=== PATIENT | male | born 1955 | race Caucasian/White ===

== ENCOUNTER 2023-09-02 08:55 | Day surgery (SDC) | payer MEDICARE, SELFPAY ==
[2023-08-27 10:04] VITALS: BMI 31.6
[2023-08-28 09:30] VITALS: BMI 31.6
--- NOTE | 2023-09-02 07:49 | WPDANESEPPF ---
Anes - Initial Pre Proc Eval Procedure: Operation Date: 09/02/23 11:30 Proposed Procedures p Esophagogastroduodenoscopy - Gunner Rod MD Date/Time: 09/02/23 07:49 Surgeon: Gunner Rod MD Pre Op Diagnosis: Dysphagia Patient Data Age: 68 Gender: M Height: 1.78 m Weight: 100 kg Allergies Allergy/AdvReac Type Severity Reaction Status Date / Time No Known Allergies Allergy Verified 09/02/23 10:29 Home Medications Medication Instructions Recorded Confirmed Type alprazolam 0.25 mg tablet 0.25 mg PO DAILY 08/18/22 09/02/23 History bupropion HCl 150 mg 24 hr tablet, 150 mg PO DAILY 08/18/22 09/02/23 History extended release doxazosin 4 mg tablet 4 mg PO DAILY 08/18/22 09/02/23 History tadalafil 5 mg tablet 5 mg PO DAILY 08/18/22 09/02/23 History vilazodone 20 mg tablet 20 mg PO DAILY 08/18/22 09/02/23 History zolpidem 10 mg tablet 10 mg PO HS 08/18/22 09/02/23 History esomeprazole magnesium 40 mg 40 mg PO DAILY 08/28/23 09/02/23 History capsule,delayed release (Nexium) phentermine 37.5 mg tablet 18.75 mg PO DAILY 08/28/23 09/02/23 History Patient hx anesthesia problems: none Family hx anesthesia problems: none Results Review: All pre-operative results and documents have been reviewed as part of the pre-operative evaluation. [facility] Past Medical History Medical History (Updated 09/02/23 @ 12:31 by Ata Lopez DO) Anxiety GERD (gastroesophageal reflux disease) NAILA (obstructive sleep apnea) Family History Family History Father Alcoholism Hypertension Heart disease Cerebrovascular accident Mother Hypertension Heart disease Grandparent Diabetes mellitus Hypertension Cerebrovascular accident Other Thyroid disorder Depression Social History Social History Smoking status: Never smoker Alcohol intake: current Drinks per week: 10 Alcohol use details: beer Substance use: never Substance use type: does not use Lack of Transportation: No Lack of Food: Never True Current Housing: I Have Housing Concerned About Future Housing: No Difficulty Paying Gas/Electric Bills: No Difficulty Paying for Meds: No Currently Unemployed: No Education: Bachelor's Degree Difficulty w/ Childcare or Family Care: No Living arrangements: alone Spiritual care concerns: No Anes - Eval Final PreProcedure Day of Procedure 09/02/23 07:49 Patient weight: obese Heart: regular rate and rhythm Lungs: clear to auscultation Airway: Mallampati scale class II Neurological: alert and oriented Last oral intake: >/= 8 hours ASA classification: III Emergent: no Anesthetic plan: proceed Anesthesia type and monitoring: general GIVS and standard monitoring Results Review: All pre-operative results and documents have been reviewed as part of the pre-operative evaluation. Informed Consent: The patient's anesthetic plan and its attendant risks and benefits were discussed with the patient/family/POA. Questions were solicited and answers provided to the satisfaction of the patient/family/POA.
[2023-09-02 10:32] VITALS: BP 160/75; PULSE 73; RESP 16; TEMP 36.7; O2SAT 96
[2023-09-02] MEDS: LACTATED RINGERS 1,000 ML 150 ML IV CONT (10:43)
--- NOTE | 2023-09-02 10:51 | PM.HPGS ---
History of Present Illness History of Present Illness Consent: Risks, benefits, and alternatives have been discussed and questions answered. Patient agrees to proceed with procedure. Chief complaint: Dysphagia Narrative: Maverick Squires is a 68 year old male presents for EGD. Patient has a long history of acid reflux. He states occasionally food will catch in the mid substernal portion of the chest. This happens predominantly with solid foods. He has taken Nexium 40mg p.o. daily for quite some time. He states initially difficulty swallowing improved on taking this medication but lately has had no significant effect. Family history is noncontributory. Patient's weight has remained stable. No bleeding has been noted. Patient presents today for endoscopic evaluation. Review of Systems Review of Systems: Review of systems noncontributory. [facility] Past Medical History Medical History Anxiety GERD (gastroesophageal reflux disease) Family History Family History Father Alcoholism Hypertension Heart disease Cerebrovascular accident Mother Hypertension Heart disease Grandparent Diabetes mellitus Hypertension Cerebrovascular accident Other Thyroid disorder Depression Social History Social History Smoking status: Never smoker Alcohol intake: current Drinks per week: 10 Alcohol use details: beer Substance use: never Substance use type: does not use Lack of Transportation: No Lack of Food: Never True Current Housing: I Have Housing Concerned About Future Housing: No Difficulty Paying Gas/Electric Bills: No Difficulty Paying for Meds: No Currently Unemployed: No Education: Bachelor's Degree Difficulty w/ Childcare or Family Care: No Living arrangements: alone Spiritual care concerns: No Meds Home Medications and Allergies Home Medications Medication Instructions Recorded Confirmed Type alprazolam 0.25 mg tablet 0.25 mg PO DAILY 08/18/22 09/02/23 History bupropion HCl 150 mg 24 hr tablet, 150 mg PO DAILY 08/18/22 09/02/23 History extended release doxazosin 4 mg tablet 4 mg PO DAILY 08/18/22 09/02/23 History tadalafil 5 mg tablet 5 mg PO DAILY 08/18/22 09/02/23 History vilazodone 20 mg tablet 20 mg PO DAILY 08/18/22 09/02/23 History zolpidem 10 mg tablet 10 mg PO HS 08/18/22 09/02/23 History esomeprazole magnesium 40 mg 40 mg PO DAILY 08/28/23 09/02/23 History capsule,delayed release (Nexium) phentermine 37.5 mg tablet 18.75 mg PO DAILY 08/28/23 09/02/23 History Allergies Allergy/AdvReac Type Severity Reaction Status Date / Time No Known Allergies Allergy Verified 09/02/23 10:29 Vital Signs Vital Signs - 24 hr 09/02/23 10:32 Temperature 98.1 F Pulse Rate 73 Respiratory Rate 16 Blood Pressure 160/75 H Pulse Oximetry 96 Oxygen Delivery Room Air Exam Narrative: Physical exam reveals patient to be alert. Vital signs stable. HEENT exam is unremarkable. Patient is anicteric. Lungs are clear to auscultation and to percussion. Heart is without murmur or extra sounds. Abdomen on is a are present soft nontender with no hepatosplenomegaly. Assessment and Plan Assessment and plan (1) Dysphagia: Code(s): R13.10 - Dysphagia, unspecified Status: Acute Assessment and Plan: complains of food catching in the midsubsternal portion of the chest most consistent with esophageal narrowing related to acid reflux. Plan for EGD to assess more thoroughly. He may need dilatation cm appears appropriate at this time (2) GERD (gastroesophageal reflux disease): Code(s): K21.9 - Gastro-esophageal reflux disease without esophagitis Status: Acute Assessment and Plan: Long Standing history of acid reflux he has been on Nexium 40mg p.o. daily for some ti
[2023-09-02 12:15] VITALS: BP 126/85; PULSE 63; RESP 18; O2SAT 95
[2023-09-02 12:25] VITALS: BP 139/74; PULSE 65; RESP 20; O2SAT 94
[2023-09-02 12:35] VITALS: BP 130/70; PULSE 69; RESP 20; O2SAT 95
== END 2023-09-02 12:48 | disposition home or self-care (01) ==
PROVIDERS: PCP Family Medicine; Visit Provider Internal Medicine Gastroenterology
PROC: 0DJ08ZZ Inspection of Upper Intestinal Tract, Via Natural or Artificial Opening Endoscopic (ICD-10-PCS; CPT 43235; principal; 2023-09-02 11:30)
DX: R13.19 Other dysphagia (principal); K21.9 Gastro-esophageal reflux disease without esophagitis; Q39.4 Esophageal web
CPT/HCPCS: 43235

== ENCOUNTER 2023-09-10 08:49 | Outpatient (CLI) | payer MEDICARE, SELFPAY ==
[2023-09-10 11:01] LABS: Prostate Specific Antigen 0.9 ng/mL (< OR = 4.0)
[2023-09-10 11:02] LABS: Free T4 Free Thyroxine 1.11 ng/mL (0.78-2.19); Vitamin D 25 Hydroxy 58.9 ng/mL
[2023-09-10 11:43] LABS: Total Triiodothyronine (T3) 1.38 NG/ML (0.97-1.69)
[2023-09-14 12:29] LABS: Sex Hormone Binding Globulin 30 nmol/L (22-77)
[2023-09-15 16:54] LABS: Testosterone Free 28.3 pg/mL (35.0-155.0); Testosterone Total 194 ng/dL (250-1100)
[2023-09-16 06:04] LABS: LH <0.2 mIU/mL (1.6-15.2); Prolactin 2.4 ng/mL (***)
== END 2023-09-10 08:50 | disposition home or self-care (01) ==
PROVIDERS: PCP Family Medicine; Visit Provider Family Medicine
DX: Z12.5 Encounter for screening for malignant neoplasm of prostate (principal); N52.9 Male erectile dysfunction, unspecified; I10 Essential (primary) hypertension; E55.9 Vitamin D deficiency, unspecified
CPT/HCPCS: 36415; 82306; 83001; 83002; 84146; 84153; 84270; 84402; 84403; 84439; 84443; 84480; G0103

== ENCOUNTER 2023-10-17 02:35 | Emergency (ER) | payer MEDICARE, SELFPAY ==
--- NOTE | ~2023-10-17 | XR_ITS ---
EXAMINATION: XR chest 2V DATE: 10/17/2023 03:13 INDICATION: Midline chest pain TECHNIQUE: PA and lateral views of the chest were obtained. COMPARISON: 11/16/2006 FINDINGS: The lungs remain clear with no focal airspace opacities, pulmonary edema, pleural effusion or pneumot horax. The cardiomediastinal silhouette is normal. Visualized bones and soft tissues are unremarkable . IMPRESSION: 1. No acute cardiopulmonary disease. Reviewed, dictated and finalized at location A.
--- NOTE | ~2023-10-17 | CT_ITS ---
EXAMINATION: CTA chest PE protocol DATE: 10/17/2023 04:01 INDICATION: Chest pain. Positive d-dimer. TECHNIQUE: Computed tomography (CT) pulmonary angiogram of the chest was performed with 100 mL Omnipa que-350 intravenous contrast. Additional 3D reconstructions utilizing coronal maximum intensity proje ction (MIP) were performed. Automated exposure control and iterative reconstruction technique were em ployed. The dose-length product was 944.10 mGy-cm. COMPARISON: None FINDINGS: No pulmonary embolism. Mild peripheral predominant reticular pattern with dependent and lower lung pr edominance which could represent atelectasis, pulmonary edema or more chronic interstitial lung disea se. No pleural effusion or pneumothorax. Borderline heart size. No pericardial effusion. Atherosclero tic coronary artery calcifications. Aortic valve calcification. Thoracic aorta is normal in caliber w ith no dissection. No pathologically enlarged abdominal or pelvic lymphadenopathy. Small sliding-type hiatal hernia. There is diffuse wall thickening of the esophagus which suggests esophagitis potentia lly due to reflux. There is also prominent rugal fold thickening at the proximal stomach. Visualized upper abdomen is otherwise unremarkable. Chronic mild anterior wedging of a couple mid thoracic verte bral bodies with mild thoracic spondylosis. IMPRESSION: 1. No pulmonary embolism. 2. Small sliding-type hiatal hernia with wall thickening of the esophagus and rugal fold thickening t he in the proximal stomach. This suggests gastritis/esophagitis but would consider endoscopy for furt her evaluation. 3. Mild peripheral reticular pattern with dependent lower lung predominance most likely atelectasis w ith differential including mild pulmonary edema or nonspecific interstitial pneumonia (NSIP) pattern chronic interstitial lung disease. 4. Borderline heart size. Reviewed, dictated and finalized at location A. IMPRESSION: 1. No pulmonary embolism. 2. Small sliding-type hiatal hernia with wall thickening of the esophagus and r ugal fold thickening the in the proximal stomach. This suggests gastritis/esoph agitis but would consider endoscopy for further evaluation. 3. Mild peripheral reticular pattern with dependent lower lung predominance mos t likely atelectasis with differential including mild pulmonary edema or nonspe cific interstitial pneumonia (NSIP) pattern chronic interstitial lung disease. 4. Borderline heart size.
--- NOTE | 2023-10-17 02:45 | ECG_ITS ---
SEE SCANNED COPY FOR CONFIRMED REPORT MTDD
[2023-10-17 03:03] LABS: Basophils Percent Auto 0.3 % (0.2-1.2); Eosinophils Absolute Auto 0.1 K/mm3 (0-0.3); Eosinophils Percent Auto 0.9 % (0-4.4); Hematocrit 46.1 % (42.0-52.0); Hemoglobin 15.9 g/dL (14.0-18.0); Immature Granulocyte Absolute 0.04 K/mm3 (0.00-0.031); Immature Granulocyte Percent A 0.3 % (0-0.5); Lymphocytes Absolute Auto 1.37 K/mm3 (0.9-3.2); Lymphocytes Percent Auto 10.7 % (18.3-44.2); Mean Corpuscular HGB Conc 34.5 g/dl (32-36); Mean Corpuscular Hemoglobin 33.2 pg (26-34); Mean Corpuscular Volume 96.2 fl (80-100); Monocytes Percent Auto 7.8 % (2.6-8.5); Neutrophils Absolute Auto 10.2 K/mm3 (1.3-6.7); Platelet Count Result 196 k/mm3 (150-375); Red Blood Count 4.79 M/mm3 (4.6-6.20); Red Cell Distribution Width 13.2 % (11.5-14.5); White Blood Count 12.8 K/mm3 (4.5-10.0)
[2023-10-17 03:13] LABS: Prothrombin Time 13.9 Seconds (11.1-14.7)
[2023-10-17 03:14] LABS: Partial Thromboplastin Time 32.5 Seconds (22.3-36.8)
[2023-10-17 03:19] LABS: D Dimer 1.44 ug/mL (<0.48)
[2023-10-17] MEDS: PANTOPRAZOLE SODIUM IV 40 MG VIAL IV PUSH (03:34)
[2023-10-17] MEDS: ASPIRIN 81 MG CHEWABLE TABLET 324 MG PO (03:34)
[2023-10-17 03:42] LABS: Alanine Aminotransferase 30 U/L (6-50); Albumin Level 4.2 g/dL (3.5-5.1); Alkaline Phosphatase 77 U/L (38-126); Anion Gap 6 mmol/L (4-12); Aspartate Amino Transferase 30 U/L (17-59); Bilirubin,Total 0.8 mg/dL (0.2-1.3); Blood Urea Nitrogen 12 mg/dL (9-20); Carbon Dioxide 26 mmol/L (22-30); Chloride 103 mmol/L (98-107); Estimated Glomerular Filt Rate > 60; Glucose 119 mg/dL (65-110); Lipase 59 U/L (23-300); Potassium 3.9 mmol/L (3.4-5.0); Sodium 135 mmol/L (137-145)
[2023-10-17 03:54] LABS: Troponin I < 0.012 ng/mL (0.000-0.034)
--- NOTE | 2023-10-17 04:35 | ED.GENADULT ---
HPI - General Adult General Chief complaint: Chest Pain Stated complaint: chest pain Time Seen by Provider: 10/17/23 02:40 History of Present Illness HPI narrative: patient is a 68-year-old gentleman who presents emergency department with chief complaint of chest discomfort pain with inspiration. Patient reports he had a recent endoscopy and reports that he ate a burger this evening patient reports that he has a discomfort feeling in his chest and reports that there is a sharp component to it as well patient reports no prior history of cardiac disease Related Data Home Medications Medication Instructions Recorded Confirmed alprazolam 0.25 mg tablet 0.25 mg PO DAILY 08/18/22 09/02/23 bupropion HCl 150 mg 24 hr tablet, 150 mg PO DAILY 08/18/22 09/02/23 extended release doxazosin 4 mg tablet 4 mg PO DAILY 08/18/22 09/02/23 tadalafil 5 mg tablet 5 mg PO DAILY 08/18/22 09/02/23 vilazodone 20 mg tablet 20 mg PO DAILY 08/18/22 09/02/23 zolpidem 10 mg tablet 10 mg PO HS 08/18/22 09/02/23 esomeprazole magnesium 40 mg 40 mg PO DAILY 08/28/23 09/02/23 capsule,delayed release (Nexium) phentermine 37.5 mg tablet 18.75 mg PO DAILY 08/28/23 09/02/23 Allergies Allergy/AdvReac Type Severity Reaction Status Date / Time No Known Allergies Allergy Verified 09/02/23 10:29 Review of Systems Review of Systems: A 10 system review of systems was completed on the patient and is negative except for what is stated in the HPI. Nursing and ancillary documentation was reviewed. COUNTS INCLUDE 234 BEDS AT THE [facility] Past Medical History Medical History Anxiety GERD (gastroesophageal reflux disease) NAILA (obstructive sleep apnea) Family History Family History Father Alcoholism Hypertension Heart disease Cerebrovascular accident Mother Hypertension Heart disease Grandparent Diabetes mellitus Hypertension Cerebrovascular accident Other Thyroid disorder Depression Social History Social History Smoking status: Never smoker Alcohol intake: current Drinks per week: 10 Alcohol use details: beer Substance use: never Substance use type: does not use Lack of Transportation: No Lack of Food: Never True Current Housing: I Have Housing Concerned About Future Housing: No Difficulty Paying Gas/Electric Bills: No Difficulty Paying for Meds: No Currently Unemployed: No Education: Bachelor's Degree Difficulty w/ Childcare or Family Care: No Living arrangements: alone Spiritual care concerns: No Exam Narrative: GENERAL: Well-appearing, well-nourished, and in no acute distress. HEAD: Normocephalic, atraumatic. EYES: PERRLA and EOMI. ENT: Nares clear, no rhinorrhea or epistaxis. Mucous membranes moist. NECK: Supple. CHEST: Clear to auscultation. No respiratory distress. HEART: Regular rate and rhythm. No murmur heard. Normal peripheral pulses. ABDOMEN: Soft, nontender, nondistended, normal active bowel sounds. EXTREMITIES: Normal range of motion. No edema. SKIN: Warm, dry, no rash. NEURO: No focal deficits. Alert and oriented x3. PSYCH: Normal mood and affect. Medical Decision Making MDM Narrative Medical decision making narrative: Differential diagnosis includes ACS laboratory studies showed white count 12.8 hemoglobin was 15.9 electrolytes showed a normal crit BUN and creatinine troponin was negative at 0 and 3 hour D-dimer was slightly elevated at 1.44 CTA chest showed no evidence of pulmonary embolism Lab Data 10/17/23 02:56 10/17/23 02:56 Labs: Lab Results 10/17/23 10/17/23 Range/Units 02:56 06:26 WBC 12.8 H (4.5-10.0) K/mm3 RBC 4.79 (4.6-6.20) M/mm3 Hgb 15.9 (14.0-18.0) g/dL Hct 46.1 (42.0-52.0) % MCV 96.2 (80-100) fl MCH 33.2 (26-34) pg MCHC
[2023-10-17 06:57] LABS: Troponin I < 0.012 ng/mL (0.000-0.034)
== END 2023-10-17 07:08 | disposition home or self-care (01) ==
PROVIDERS: Emergency Provider Emergency Medicine; PCP Family Medicine
DX: R07.89 Other chest pain (principal); G47.33 Obstructive sleep apnea (adult) (pediatric); K21.9 Gastro-esophageal reflux disease without esophagitis; F41.9 Anxiety disorder, unspecified
CPT/HCPCS: 36415; 71046; 71275; 80053; 83690; 84484; 85025; 85380; 85610; 85730; 93005; 96374; 99284; A9270; C9113; Q9967

== ENCOUNTER 2023-12-24 10:50 | Day surgery (SDC) | payer MEDICARE, SELFPAY ==
[2023-12-22 10:50] VITALS: BMI 31.4
[2023-12-22 15:13] VITALS: BMI 30.9
[2023-12-24 11:13] VITALS: BP 128/76; PULSE 72; RESP 16; TEMP 37.1; O2SAT 97
[2023-12-24] MEDS: LACTATED RINGERS 1,000 ML 150 ML IV CONT (11:16)
--- NOTE | 2023-12-24 11:35 | WPDHPUPDATE1 ---
History and Physical Update Update Date/Time: 12/24/23 11:35 History and Physical has been reviewed, including an updated exam of the patient. There are NO changes in the patient's condition. Risks, benefits, and alternatives have been discussed and questions answered. Patient agrees to proceed with procedure.
--- NOTE | 2023-12-24 11:38 | WPDANESEPPF ---
Anes - Initial Pre Proc Eval Procedure: Operation Date: 12/24/23 12:30 Proposed Procedures p Esophagogastroduodenoscopy - Gunner Rod MD Date/Time: 12/24/23 11:38 Surgeon: Gunner Rod MD Pre Op Diagnosis: Esophageal Web.Dysphagia,unspecified.Gastro- Patient Data Age: 68 Gender: M Height: 1.78 m Weight: 99.3 kg Last Vital Signs Temp 37.1 C 12/24/23 11:13 Pulse 72 12/24/23 11:13 Resp 16 12/24/23 11:13 BP 128/76 12/24/23 11:13 Pulse Ox 97 12/24/23 11:13 O2 Del Method Room Air 12/24/23 11:13 Allergies Allergy/AdvReac Type Severity Reaction Status Date / Time No Known Allergies Allergy Verified 12/24/23 11:10 Home Medications Medication Instructions Recorded Confirmed Type alprazolam 0.25 mg tablet 0.25 mg PO DAILY 08/18/22 12/24/23 History doxazosin 4 mg tablet 4 mg PO DAILY 08/18/22 12/24/23 History tadalafil 5 mg tablet 5 mg PO DAILY 08/18/22 12/24/23 History zolpidem 10 mg tablet 10 mg PO HS 08/18/22 12/24/23 History esomeprazole magnesium 40 mg 40 mg PO DAILY 08/28/23 12/24/23 History capsule,delayed release (Nexium) phentermine 37.5 mg tablet 18.75 mg PO DAILY 08/28/23 12/24/23 History Patient hx anesthesia problems: none Family hx anesthesia problems: none Results Review: All pre-operative results and documents have been reviewed as part of the pre-operative evaluation. [facility] Past Medical History Medical History Anxiety Esophageal web determined by endoscopy GERD (gastroesophageal reflux disease) NAILA (obstructive sleep apnea) Family History Family History Father Alcoholism Hypertension Heart disease Cerebrovascular accident Mother Hypertension Heart disease Grandparent Diabetes mellitus Hypertension Cerebrovascular accident Other Thyroid disorder Depression Social History Social History Smoking status: Never smoker Alcohol intake: current Drinks per week: 1 Alcohol use details: beer Substance use: never Substance use type: does not use Lack of Transportation: No Lack of Food: Never True Current Housing: I Have Housing Concerned About Future Housing: No Difficulty Paying Gas/Electric Bills: No Difficulty Paying for Meds: No Currently Unemployed: No Education: Bachelor's Degree Difficulty w/ Childcare or Family Care: No Living arrangements: with family Spiritual care concerns: No Anes - Eval Final PreProcedure Day of Procedure 12/24/23 11:38 Patient weight: obese Heart: regular rate and rhythm Lungs: clear to auscultation Airway: Mallampati scale class II Neurological: alert and oriented Last oral intake: >/= 8 hours ASA classification: III Emergent: no Anesthetic plan: proceed Anesthesia type and monitoring: general GIVS and standard monitoring Results Review: All pre-operative results and documents have been reviewed as part of the pre-operative evaluation. Informed Consent: The patient's anesthetic plan and its attendant risks and benefits were discussed with the patient/family/POA. Questions were solicited and answers provided to the satisfaction of the patient/family/POA.
[2023-12-24 12:29] VITALS: BP 126/82; PULSE 62; RESP 16; O2SAT 98
[2023-12-24 12:39] VITALS: BP 127/78; PULSE 66; RESP 18; O2SAT 96
--- NOTE | 2023-12-24 12:47 | WPDANESPN ---
Anes - Prog Note Post-Op Date/Time: 12/24/23 12:47 Cardiovascular status: normal Respiratory status: normal Airway patency: baseline Mental status: baseline Post-Op hydration status: normal Vital Signs: Last Vital Signs Temp 37.1 C 12/24/23 11:13 Pulse 66 12/24/23 12:39 Resp 18 12/24/23 12:39 BP 127/78 12/24/23 12:39 Pulse Ox 96 12/24/23 12:39 O2 Del Method Room Air 12/24/23 12:39 Pain Score (VAS): 0/10 I/O: Intake & Output 12/23/23 12/24/23 12/24/23 23:59 07:59 15:59 Intake Total 500 Balance 500 Patient Feedback: Patient satisfied with anesthetic care.
[2023-12-24 12:49] VITALS: BP 141/78; PULSE 66; RESP 16; O2SAT 95
== END 2023-12-24 12:56 | disposition home or self-care (01) ==
PROVIDERS: PCP Family Medicine; Visit Provider Internal Medicine Gastroenterology
PROC: 0DJ08ZZ Inspection of Upper Intestinal Tract, Via Natural or Artificial Opening Endoscopic (ICD-10-PCS; CPT 43235; principal; 2023-12-24 12:30)
DX: K22.2 Esophageal obstruction (principal); K22.10 Ulcer of esophagus without bleeding; R13.19 Other dysphagia
CPT/HCPCS: 43249

== ENCOUNTER 2024-01-05 07:55 | Outpatient (CLI) | payer MEDICARE, SELFPAY ==
--- NOTE | ~2024-01-05 | XR_ITS ---
EXAMINATION: XR barium swallow DATE: 01/05/2024 08:39 INDICATION: Dysphagia post recent esophageal dilation TECHNIQUE: The patient drank thick barium, gas-producing crystals, and thin barium. Fluoroscopic spot radiographs of the hypopharynx and esophagus were obtained. Fluoroscopy exposure time was 1.6 minut es. A total of 1229 fluoroscopic images were recorded. Total DAP was 13.365 Gycm^2 COMPARISON: None. FINDINGS: The pharynx is symmetric and without evidence of mass lesion or mucosal irregularity. The e sophagus is normal without mass, stricture or mucosal irregularities. The gastroesophageal junction d ilates to at least 3.4 x 1.7 cm. Esophageal motility is normal. There is no hiatal hernia. There was no gastroesophageal reflux with provocative maneuvers. IMPRESSION: 1. Normal esophagram. Reviewed, dictated and finalized at location A. IMPRESSION: 1. Normal esophagram.
== END 2024-01-05 07:56 | disposition home or self-care (01) ==
PROVIDERS: PCP Family Medicine; Visit Provider Nurse Practitioner Family
DX: K21.9 Gastro-esophageal reflux disease without esophagitis (principal); Q39.4 Esophageal web
CPT/HCPCS: 74220

== ENCOUNTER 2024-04-12 11:01 | Outpatient (CLI) | payer MEDICARE, SELFPAY ==
--- NOTE | ~2024-04-12 | XR_ITS ---
XR sacrum coccyx min 2V Ordering provider: Joss Toribio, APPRENTICE PAINTER [employer]ECKTIES History: . LOW BACK PAIN WHEN LAYING DOWN OR SITTING DETAILED NOTESPACS . Comparison: The FINDINGS: BONES: No acute fracture or dislocation. JOINTS: The sacroiliac joint spaces are normal. SOFT TISSUES: Soft tissues are normal. IMPRESSION: No definite acute osseous abnormality sacrum and coccyx. Reviewed, dictated and finalized at location A.
--- NOTE | ~2024-04-12 | XR_ITS ---
3 VIEWS LUMBAR SPINE Ordering provider: Joss Toribio, SALES AND MARKETING REPRESENTATIVE History: . lOW BACK PAIN NO INJURY RADIATES DOWN DETAILED NOTES IN PACS . Comparison: None. FINDINGS: VERTEBRAL BODIES:Transitional vertebra is noted. No visible fracture or subluxation. Changes of the spine. DISK SPACES: Normal. Multilevel facet joint disease. SOFT TISSUES: Aortic atherosclerotic changes. A IMPRESSION: No acute osseous abnormality lumbar spine. Reviewed, dictated and finalized at location A.
--- NOTE | ~2024-04-12 | XR_ITS ---
Right Shoulder Technique: AP and scapular Y views were obtained. Clinical History: Pain Findings: No fracture or dislocation is seen. Osseous alignment is anatomic. The glenohumeral and acr omioclavicular joint spaces are preserved. There is calcific mineralization of the rotator cuff dista lly, compatible with calcific tendinitis.. Impression: Calcific tendinitis of the rotator cuff. Reviewed, dictated and finalized at location M. Impression: Calcific tendinitis of the rotator cuff.
[2024-04-12 12:24] LABS: Basophils Absolute Auto 0.1 K/mm3 (0.0-0.1); Basophils Percent Auto 0.7 % (0.2-1.2); Eosinophils Absolute Auto 0.2 K/mm3 (0-0.3); Eosinophils Percent Auto 3.3 % (0-4.4); Hematocrit 49.3 % (42.0-52.0); Hemoglobin 17.1 g/dL (14.0-18.0); Immature Granulocyte Absolute 0.02 K/mm3 (0.00-0.031); Immature Granulocyte Percent A 0.3 % (0-0.5); Lymphocytes Percent Auto 26.5 % (18.3-44.2); Mean Corpuscular HGB Conc 34.7 g/dl (32-36); Mean Corpuscular Hemoglobin 33.2 pg (26-34); Mean Corpuscular Volume 95.7 fl (80-100); Mean Platelet Volume 9.2 fl (7.4-10.4); Monocytes Absolute Auto 0.6 K/mm3 (0.1-0.6); Monocytes Percent Auto 8.6 % (2.6-8.5); Neutrophils Absolute Auto 4.3 K/mm3 (1.3-6.7); Neutrophils Percent Auto 60.6 % (45.5-73.1); Platelet Count Result 204 k/mm3 (150-375); Red Blood Count 5.15 M/mm3 (4.6-6.20); White Blood Count 7.2 K/mm3 (4.5-10.0)
[2024-04-12 12:31] LABS: Alanine Aminotransferase 29 U/L (6-50); Albumin Level 4.4 g/dL (3.5-5.1); Alkaline Phosphatase 101 U/L (38-126); Anion Gap 11 mmol/L (4-12); Aspartate Amino Transferase 23 U/L (17-59); Bilirubin,Total 0.6 mg/dL (0.2-1.3); Blood Urea Nitrogen 13 mg/dL (9-20); Calcium 9.2 mg/dL (8.4-10.2); Carbon Dioxide 27 mmol/L (22-30); Chloride 102 mmol/L (98-107); Cholesterol 172 mg/dL (0-200); Estimated Glomerular Filt Rate > 60; Glucose 117 mg/dL (65-110); HDL Direct 26 mg/dL; Sodium 140 mmol/L (137-145); Triglycerides 99 mg/dL (<150)
[2024-04-12 12:32] LABS: Hemoglobin A1C 5.4 % (<5.7)
[2024-04-12 12:41] LABS: LDL Cholesterol Direct 119 mg/dL
[2024-04-12 12:56] LABS: Creatinine Urine 332.4 mg/dL
[2024-04-12 13:02] LABS: MALB Creatinine Ratio 9.9 mg/g (0-30); Microalbumin Urine Random 32.8 mg/L (0-16.7)
== END 2024-04-12 11:02 | disposition home or self-care (01) ==
PROVIDERS: PCP Family Medicine; Visit Provider Registered Nurse
DX: M25.511 Pain in right shoulder (principal); M54.50 Low back pain, unspecified; I10 Essential (primary) hypertension; E78.5 Hyperlipidemia, unspecified; E66.9 Obesity, unspecified; R73.01 Impaired fasting glucose
CPT/HCPCS: 36415; 72100; 72220; 73030; 80053; 80061; 82043; 83036; 85025

== ENCOUNTER 2024-07-20 12:08 | Outpatient (CLI) | payer MEDICARE, SELFPAY ==
--- OUTSIDE RECORDS SUMMARY | 2024-07-20 13:21 | XMS_ITS | Clinical Summary ---
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 Gender Identity Not on file Sexual Orientation Not on file Plan of Treatment Upcoming Encounters Date Type Department Care Team (Late st Contact Info) Description 10/20/2024 11:00 AM CDT Office Visit [facility] - [facility] [address], [address] [place] [address] Ruby Miles APRN [address] [facility] [facility] [address] [place] [address] Health Maintenance Due Date Last Done Comments Colorectal Cancer Screening Colonoscopy (10 Years) 1957 Hepatitis C 1975 DTaP, Tdap and Td Vaccines ( 1 - Tdap) 1976 Zoster Vaccines (1 of 2) 2007 Annual Medicare Wellness Visit 2022 Pneumococcal Vaccine: 65+ Ye ars (1 of 1 - PCV) 2022 COVID-19 Vaccine ( - 2023-2 5 season) 2024 Influenza Adult (#1) 2024 RSV Immunization or 60+ Years (1 - 1-dose 75+ series) 2032 Meningococcal B Vaccine Aged Out No l onger eligible based on patient's age to complete this topic Meningococcal Vaccine Aged Out No david sarah eligible based on patient's age to complete this topic RSV Immunizations Under 20 Months Aged Out No longer eligible based on patient's age to complete this topic Insurance [facility]
--- OUTSIDE RECORDS SUMMARY | 2024-07-20 13:22 | XMS_ITS | Data Portability ---
Author Organization [place] [facility], Main Office Address [address] [place] [address] Care Team Providers Care Acetone Button Paster Name Role Phone CARMENCITA SALGADO Primary Care Provider CARMENCITA SALGADO Referring Provider [phone] Assessment Encounter Date Assessment Date Assessment LastModified by Organization Details LastModified Time 04/20/2024 04/20/2024 69 yo old patient presents today with right shoulder pain after a fall in August. He stepped back off a curb and fell directly onto the shoulder. He had xrays taken and was told he did not have a fracture. He is having pain with overhead lifting and certain movements. 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 He is right handed. For treatment he has tried ibuprofen, which does not help. Review of systems per patient questionnaire imaging: X-rays reviewed show no acute bony abnormality, no fracture. Preserved joint spaces. Possible impingement against acromial spur. Physical exam: No pain with palpitation around the shoulder. Range of motion 150/40/ lower lumbar. Pain with resisted elevation. 5/5 rotator cuff strength. Positive Demetrius's, Neer, Erazo. Sensation intact throughout. We will start with a course of physical therapy and anti-inflammator ies. We will order meloxicam. Since he has had pain since August, we discussed the risks and benefits of a cortisone injection. He would like to proceed with the injection today. We will see him back as needed for pain. He is in agreement with this plan. [email or web address] Not available 04/20/2024 14:58:27 Plan of Treatment Reminders Order Date Submit Date Provider Last Modified By Organization Details Last Modified Time Details Appointments None recorded. Lab None recorded. Referral physical therapist referral - Please contact pt to schedule apt for R shoulder. Thanks 2023 024 ATHENAFAX [facility], [address] [place], [address], 08:28:29 Procedures injection/ aspiration joint/burs a (PROC) 2023 [email or web address] 1 In-Office Order, Internal Use Only DO Not Attach Compendium DO Not Attach Compendium, Do Not Delete/merge, [id number] 11:41:03 Surgeries None recorded. Imaging None recorded. Medication Orders Mobic 15 mg tablet [address] [facility] [place], [address], 15:24:53 bupivacain e HCl 0.5 % (5 mg/mL) injection solution [address] [facility] [address] [place], [address], 4 15:24:53 Kenalog 10 mg/mL suspension for injection [address] [facility] [address] [place], [address], 15:24:53 Patient TargetsNo targets recorded. Patient InstructionsNo instructions recorded. Reason for Referral Physical Therapist Referral for Pain of right shoulder joint R shoulder Please contact pt to schedule apt for R shoulder. Thanks Referring Physician: Sherley Hernandez, Orthopedic Surgery, Encounter Date: 04/20/2024 Results Created Date Observation Date Name Description Value Unit Range Abnormal Flag Note LastModifiedBy Organization Detail LastModifiedTime 04/18/2004/12/2024 XR, shoul rocco, 2 or more view No observ ation record ed. [email or web address] Not Available 09/2023 11:31:25 Result Notes None recorded. Problems Name Problem SNOMED Code Status Onset Date Resolution Date Notes Provider Name and Address Organization Details Recorded Time Pain of right shoulder joint [id number] 00 Active 2023 Lynn Kristen, BRENT null, [place] [facility] 4 11:18:09 Problem Notes None recorded. Procedures Surgical History Date Name Laterality Status Provider Name and Address Organization Details Recorded Time 4 Ortho - Cortisone Injection completed Sherley Hernandez, MAINTENANCE SUPERVISOR MECHANICAL [address] [facility], [facility] [address], [place], [address], [facility] 04/20/2024 14:36:13 Imaging Results Imaging Date Name Status LastModified by Organiz ation Details LastModified Time 04/12/2024 XR, shoulder, 2 or more view completed [email or web address] Information not available 04/18/2024 11:31:25 Procedure Notes None recorded. Medical Equipment None Reported. Allergies No known drug allergies Medications Name Sig Start Date Stop Date Status Note LastModified by Organization Details LastModified Time meloxicam 15 mg tablet TAKE 1 TABLET BY MOUTH ONCE DAILY active Not Available Not Available No t Available bupivacaine HCl 0.5 % (5 mg/mL) injection solution Take 4 mL by injection route. 2023 active Not Available Not Available Not Avai lable phentermine 37.5 mg tablet TAKE 1 TABLET BY MOUTH ONCE DAILY active Not Available Not Available No t Available ciprofloxac in 500 mg tablet TAKE 1 TABLET BY MOUTH TWICE DAILY 04/20 completed Not Available Not Available Not Available alprazolam 0.25 mg tablet TAKE 1 TABLET BY MOUTH ONCE DAILY active Not Available Not Available No t Available prednisolon e acetate 1 % eye drops,suspe nsion 04/20 completed Not Available Not Available Not Available Kenalog 10 mg/mL suspension for injection Take 1 mL by injection route. 2023 active [facility]: 0003- 0494- 20 Not Available Not Available Not Available doxazosin 4 mg tablet TAKE 1 TABLET BY MOUTH ONCE DAILY IN THE MORNING 04/20 completed Not Available Not Available Not Available zolpidem 10 mg tablet TAKE 1 TABLET BY MOUTH ONCE DAILY AT BEDTIME active Not Available Not Available No t Available Restasis 0.05 % eye drops in a dropperette active Not Available Not Available Not Available bupropion HCl XL 150 mg 24 hr tablet, extended release TAKE 1 TABLET BY MOUTH ONCE DAILY 04/20 completed Not Available Not Available Not Available alfuzosin ER 10 mg tablet,exte nded release 24 hr TAKE 1 TABLET BY MOUTH NIGHTLY active Not Available Not Available No t Available tadalafil 5 mg tablet TAKE 1 TABLET BY MOUTH ONCE DAILY 04/20 completed Not Available Not Available Not Available tadalafil 20 mg tablet TAKE ONE TABLET BY MOUTH 30-45 MINUTES PRIOR TO SEXUAL ACTIVITY. active Not Available Not Available No t Available vilazodone 20 mg tablet TAKE 1 TABLET BY MOUTH ONCE DAILY 04/20 completed Not Available Not Available Not Available Vitals Date Recorded Body height Body mass index (BMI) Body weight Provider Name and Address Organization Details Last Updated DateTime 04/20/2024 175.26 cm 31.3 kg/m2 08300.58 g Lynn Peterson CNA [facility] 04/20/2024 11:13:43 Social History Question Answer Notes LastModified by Organizat ion Details LastModified Time Tobacco Smoking Status Never Smoker Lynn Peterson CNA null [facility] 04/20/2024 11:16:56 What Is Your Level Of Alcohol Consumption? Occasional [email or web address] Information not available 04/20/2024 Sex: Unknown Functional Status None recorded. Mental Status None recorded. Family History Relationship Description Onset Age of this Age Resolved Age Notes LastModified by Organization Details LastModified Time Mother Diabetes mellitus [email or web address] Not available 2023 11:16:44 Paternal Grandmother Diabetes mellitus [email or web address] Not available 2023 11:16:44 Medical History Condition Response ARTHRITIS Y Past Encounters Encounter ID Performer Location Encounter Start Date Encounter Closed Date Diagnosis/Indication Diagnosis SNOMED-CT Code Diagnosis ICD10 Code Diagnosis Note [id number] Sherley Hernandez NP [facility] [address] [place] [address] 04/20/2024 10:54:07 04/20/2024 11:41:28 Pain of right shoulder joint [id number] 2169236 M25.511 Health Concerns Section Related Observation LastModified by Organization Detai ls LastModified Time None Recorded Concern Status LastModified by Organization Details LastModified Time None Recorded Advance Directives Directive None Recorded Payers Encounter Date Sequence Insurance Name Policy Number Policy Weiner Covered Member ID Weiner Member ID Guarantor Name 04/20/2024 1 [facility] (MEDICARE REPLACEMENT/A DVANTAGE - HMO) [id number] Maverick Squires [id number] Maverick Squires
--- OUTSIDE RECORDS SUMMARY | 2024-07-20 13:22 | XMS_ITS | Clinical Summary ---
Author Organization [facility] Address [address] [place] [address] Phone Care Team Providers Care Customer Complaint Service Supervisor Name Role Phone Provider, None Primary Care Provider Andrés Cornelius MD Unavailable [phone] Allergies No known active allergies Medications Loratadine-Pseu doephedrine (CLARITIN-D 24 HOUR PO) Take by mouth. Active ALPRAZolam (XANAX) 0.25 MG Tablet Take 0.25 mg by mouth daily. Active Phentermine HCl 37.5 MG Tablet Take 37.5 mg by mouth daily. 12/16/2023 Active zolpidem (AMBIEN) 10 MG Tablet TAKE 1 TABLET BY MOUTH ONCE DAILY AT BEDTIME Active tadalafil (CIALIS) 20 MG Tablet TAKE ONE TABLET BY MOUTH 30-45 MINUTES PRIOR TO SEXUAL ACTIVITY 11/17/2023 Active Multiple Vitamins-Minera ls (EYE VITAMINS PO) Take by mouth. Active alfuzosin (UROXATRAL) 10 MG TABLET SR 24 HR Take 1 Tablet by mouth nightly for 360 days. 90 Tablet 3 01/11/2024 01/06/20 25 Active psyllium (METAMUCIL) 58.6 % Pack Take 1 Packet by mouth daily. 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 Gender Identity Not on file Sexual Orientation Not on file Last Filed Vital Signs Vital Sign Reading Time Taken Comments Blood Pressure 136/79 01/11/2024 8:32 AM CDT Pulse 74 01/11/2024 8:32 AM CDT Temperature 36.6 ??C (97.9 ??F) 07/25/2011 1:51 PM CS T Respiratory Rate 16 01/11/2024 8:32 AM CDT Oxygen Saturation 95% 01/11/2024 8:32 AM CDT Inhaled Oxygen Concentration - - Weight 98.9 kg (218 lb) 01/11/2024 8:32 AM CDT Height 175.3 cm (5' 9 ) 01/11/2024 8:32 AM CDT Body Mass Index 32.19 01/11/2024 8:32 AM CDT Plan of Treatment Health Maintenance Due Date Last Done Comments Hepatitis C Virus (HCV) Screening 1955 TdaP Immunization 1955 Colonoscopy 2002 Colorectal Cancer Screening 2002 Cologuard 2007 Immunochemical Fecal Occult Blood 2007 Pneumococcal Immunization (5 0+ years) (1 of 1 - PCV) 2007 Zoster Immunization (1 of 2) 2007 PSA Discussion 2012 Influenza Immunization (#1) 2024 SARS-COV-2 Immunization ( - season) 2024 Respiratory Syncytial Virus (RSV) Immunization (Adult) (1 - 1-dose 75+ series) 2032 Hepatitis B Immunization Aged Out No longer eligible based on patient's age to complete this topic Meningococcal Immunization (ACWY) Aged Out No longer eligible based on patient's age to complete this topic Rotavirus Immunization Aged Out No lo nger eligible based on patient's age to complete this topic Insurance [facility] [id number] Care Teams Customer Complaint Service Supervisor Relationship Specialty Start Date End Date Provider, None [place] PCP - General 07/25/11 Andrés Huffman MD #[address] [address] Consulting Physician Urology 01/11/24
--- NOTE | 2024-08-01 15:15 | P.SLEEP_ITS ---
Sleep Study Date of Study: 07/20/24 Ordering Provider: Kodi Nassar APRN Interpreting Physician: Ivone Scherer MD Sleep Study Type: Split Polysomnogram Height: 1.78 m Weight: 99.79 kg Body Mass Index: 31.5 Neck Circumference (inches): 20 [place]: 6 Reason for Sleep Study Witnessed apnea, poor quality sleep, loud snoring Sleep History Maverick Squires is a 69-year-old man with poor quality sleep who always feels tired during the day. He has use phentermine for weight loss but quit taking it because it made him feel agitated. His medical comorbidities include hypertension, depression and acid reflux He occasionally awakens from sleep feeling short of breath. He occasionally wakes at night with heartburn, belching or coughing.??He constantly snores, constantly snores loudly enough that others complain. He frequently has trouble sleeping when he has a cold. He occasionally wakes up gasping for breath during the night. He constantly has breathing problems at night observed by others. He rarely sweats excessively at night. He occasionally notices his heart pounding or beating irregularly during the night. He occasionally falls asleep during the day. He occasionally falls asleep involuntarily, and rarely falls asleep while driving. He fell asleep in a car while stopped in traffic for a few minutes 2 weeks ago. He occasionally experiences loss of muscle tone with strong emotion. He rarely has daytime difficulty at work due to excessive sleepiness. 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 He occasionally feels paralyzed on waking or falling asleep. He rarely experiences vivid dreams upon waking or falling asleep. He never feels afraid of going to sleep. He never has nightmares. He rarely recalls his dreams. He frequently has thoughts racing through his mind. He occasionally feels sad or depressed. He frequently feels anxiety. He frequently notices parts of his body jerk. He rarely kicks during the night. He rarely feels crawling or aching feelings in his legs. He rarely feels leg pain at night. He occasionally has morning jaw pain, constantly grinds his teeth at night. He occasionally feels bothered by pain during the day, occasionally awakened by pain during the night. He frequently wakes up feeling stiff in the morning, and he frequently wakes feeling sore or achy. He frequently awakens with pain in his neck, spine, or joints. He reports a 25 lb weight gain in the last year. Normal bedtime is between 11:00 p.m. and 12 midnight, falling asleep within a couple of hours, waking between 2 and 3 times at night to go to the bathroom. He may be able to return to sleep in 30 minutes but this may also take up to 1 hour for him to return to sleep. His normal wake time is 8:00 a.m.. He keeps the same schedule on weekends. He estimates getting an average of stay 3-6 hours of sleep at night. He does not take naps during the day, and a short nap lasting 10-15 minutes is not refreshing. Habits:??Tobacco: Never smoked Caffeine: 2-3 per day Alcohol: 7-8 beers a week Recreational substances: none PMFSH Past Medical History Medical History Esophageal web determined by endoscopy NAILA (obstructive sleep apnea) GERD (gastroesophageal reflux disease) Anxiety Family History Family History Father Alcoholism Hypertension Heart disease Cerebrovascular accident Mother Hypertension Heart disease Grandparent Diabetes mellitus Hypertension Cerebrovascular accident Other Thyroid disorder Depression Social History Social History Smoking status: Never smoker Alcohol intake: current Drinks per week: 1 Alcohol use details: beer Substance use: never Substance use type: does not use Lack of Transportation: No Lack of Food: Never True Current Housing: I Have Housing Concerned About Future Housing: No Difficulty Paying Gas/Electric Bills: No Difficulty Paying for Meds: No Currently Unemployed: No Education: Bachelor's Degree Difficulty w/ Childcare or Family Care: No Living arrangements: with family Spiritual care concerns: No Medications Home Medications ?Medication ?Instructions ?Recorded ?Confirmed ?Type alprazolam 0.25 mg tablet 0.25 mg PO DAILY 08/18/22 07/11/24 History tadalafil 5 mg tablet 5 mg PO DAILY 08/18/22 07/11/24 History zolpidem 10 mg tablet 10 mg PO HS 03/06/23 01/27/25 History esomeprazole magnesium 40 mg 40 mg PO BID #60 caps 12/24/23 07/11/24 Rx capsule,delayed release (Nexium) alfuzosin 10 mg tablet,extended 10 mg PO DAILY 07/11/24 07/11/24 History release 24 hr meloxicam 7.5 mg tablet 7.5 mg PO DAILY 07/11/24 07/11/24 History Sleep Procedure A split night polysomnogram using the [employer] multi-channel system recorded the standard physiologic parameters including EEG, EOG, submentalis EMG, anterior tibialis EMG, EKG, body position, nasal and oral airflow using nasal pressure sensor and thermistor. Respiratory parameters of chest and abdominal movements were recorded with Respiratory Inductance Plethysmography belts. Oxygen saturation was recorded by pulse oximetry. Video monitoring was also performed. Sleep stages, periodic limb movements, and EEG arousals were scored in 30 second epochs according to the criteria of the AASM Scoring Manual. The Apnea-Hypopnea Index was calculated using [facility] guidelines for definition of hypopnea while scoring respiratory events. The patient self-administered a zolpidem 10 mg at bedtime. After the baseline portion the patient met criteria for a titration with an AHI of 77.7 and desaturation to 65%. He used a medium ResMed AirTouch F20 fullface mask and started with a CPAP pressure of 5 cm which did not feel sufficient, saying that he was not getting enough air. CPAP was increased to 7 cm, 9 cm, 10 cm, 12 cm, 14 cm, and 16 cm. At CPAP 16, the patient spent 33.5 minutes in bed, 4.5 minutes awake, 28 minutes in non-REM and 1 minute in REM. Sleep efficiency was 86.6%, the residual apnea-hypopnea index was 2.1 and the lowest saturation was 88%. Sleep Architecture During the diagnostic portion of the study, the total recording time was 298.8 minutes. The total sleep time was 137.5 minutes. Sleep latency was 15.7 minutes. REM latency was 138.5 minutes. Sleep Efficiency was 46.0%. The patient had 32 awakenings for an awakening index of 14.0. Wake after sleep onset time was 145.5 minutes. The patient spent 57.0 minutes, 41.5% of total sleep time in Stage N1. The patient spent 49.5 minutes, 36.0% in Stage N2. The patient spent 0.0 minutes, 0.0% in Stage N3. The patient spent 31.0 minutes, 22.5% in Stage REM sleep. At 02:15:30 AM the patient was placed on PAP treatment and was titrated at pressures ranging from CPAP 5 to 16 cm water pressure. During the treatment portion of the study, the total recording time was 249.7 minutes. The total sleep time was 228.0 minutes. Sleep latency was 5.0 minutes. REM latency was 34.0 minutes. Sleep Efficiency was 91.3%. Wake after Sleep Onset time was 17.0 minutes. The patient spent 25.0 minutes, 11.0% of total sleep time in Stage N1. The patient spent 136.5 minutes, 59.9% in Stage N2. The patient spent no time in Stage N3. The patient spent 66.5 minutes, 29.2% in Stage REM. Respiratory Analysis During the diagnostic portion of the study, the patient had 3 hypopneas, 145 obstructive apneas, 25 mixed apneas, and 5 central apneas for an overall Apnea Hypopnea Index of 77.7 events per hour. The REM Apnea Hypopnea Index was 48.4. The NREM Apnea Hypopnea Index was 86.2. The supine AHI was 120 events per hour, the non-supine AHI was 76.9 events per hour. he patient had a Central Apnea Hypopnea Index of 2.2. There were no Respiratory Effort Related Arousals. The Respiratory Disturbance Index is 77.7 events per hour. There was no evidence of Nahum-Fatima Respirations. During the treatment portion of the study, the patient had 35 hypopneas, 6 obstructive apneas, 3 mixed apneas, and 2 central apneas for an overall Apnea Hypopnea Index of 12.1 events per hour. The REM Apnea Hypopnea Index was 9.9. The NREM Apnea Hypopnea Index was 13.0. The patient had a Central Apnea Hypopnea Index of 0.5. The supine AHI was 25.5, the nonsupine AHI was 9.3. There were no Respiratory Effort Related Arousals. The Respiratory Disturbance Index is 14.5 events per hour. There was no evidence of Nahum-Fatima Respirations. Arousals During the diagnostic portion of the study, there were a total of 159 arousals for an arousal index of 69.4. There were 143 respiratory arousals for an index of 62.4. There were no periodic limb movement arousal and no isolated limb movement arousals. There were 16 spontaneous arousals for an index of 7.0. During the treatment portion of the study, there were a total of 42 arousals for an index of 11.1. There were 16 respiratory arousals for an index of 4.2. There were 2 periodic limb movement arousals for an index of 0.5. There were 8 isolated limb movement arousals for an index of 2.1. There were 16 spontaneous arousals for an index of 4.2. Periodic Limb Movements During the diagnostic portion of the study, the patient had no isolated limb movements or periodic limb movements. During the treatment portion of the study, the patient had 25 isolated limb movements with an index of 6.6. The patient had 18 periodic limb movements with an index of 4.7. The patient had a total of 43 limb movements with a total limb movement index of 11.3. Oximetry Data During the diagnostic portion of the study, the patient had an average oxygen saturation of 92% in wake with a minimum oxygen saturation of 65% and a maximum oxygen saturation of 99%. The patient had an average oxygen saturation of 86.2% in sleep with a minimum oxygen saturation of 65% and a maximum oxygen saturation of 97%. The patient had 174 oxygen desaturations resulting in an Oxygen Desaturation Index of 75.9. The patient spent 86.3 minutes, 29.2% of total sleep time with an oxygen saturation less than 88%. During the treatment portion of the study, the patient had an average oxygen saturation of 92.5% in wake with a minimum oxygen saturation of 85% and a maximum oxygen saturation of 98%. The patient had an average oxygen saturation of 92.1% in sleep with a minimum oxygen saturation of 79% and a maximum oxygen saturation of 98%. The patient had 61 oxygen desaturations resulting in an Oxygen Desaturation Index of 16.1. The patient spent 10.4 minutes, 4.2% of total sleep time with an oxygen saturation less than 88%. Snoring Profile Snoring was mild during the treatment portion, resolved during the titration. Cardiac Profile During the diagnostic portion of the study, the EKG showed normal sinus rhythm. The average pulse rate was 62.2 bpm. The minimum pulse rate was 53 bpm. The maximum pulse rate was 93 bpm. No arrhythmias noted. During the treatment portion of the study, the EKG showed normal sinus rhythm. The average pulse rate was 59.9 bpm. The minimum pulse rate was 52 bpm. The maximum pulse rate was 78 bpm. No arrhythmias noted. EEG Profile EEG was unremarkable, no evidence of seizures. Assessment and Plan Assessment and Plan (1) Obstructive sleep apnea: Code(s): G47.33 - Obstructive sleep apnea (adult) (pediatric) Status: Acute Assessment and Plan: This split night sleep study on 07/20/2024 shows severe obstructive sleep apnea, hypopnea index is 77.7 with desaturation to 65% and 86.3 minutes, 29.2% the baseline spent below 88%. Events were much worse in the supine position. He was successfully treated using a medium ResMed AirFit F20 fullface mask and heated humidity with CPAP 16 cm. At this pressure, the patient spent 33.5 minutes in bed, 4.5 minutes awake, 28 minutes in non-REM and 1 minute in REM. Sleep efficiency was 86.6%, the residual apnea-hypopnea index was 2.1 and the lowest saturation was 88%. He had non-REM sleep in the right lateral position at this pressure. He had a small amount of REM at this setting. The patient should be p rescribed this ResMed equipment as well as tubing, filters and reservoir. This should be used with all episodes of sleep. Compliance should be reviewed within 31-90 days of starting therapy for usage greater than 4 hours per night greater than 70% of the nights. The patient should be asked about symptoms such as excessive daytime sleepiness, quality of sleep, decreased nocturia, increased mental functioning such as memory, mood, and concentration. BMI is 31. Weight management is advised. Clinical data suggests that weight loss of 10% can reduce the severity of respiratory events and snoring and improve AHI by as much as 25%. The patient's sleep questionnaire indicated that he grinds his teeth frequently. Bruxing was not seen on this study. Treating apnea can reduce grinding teeth du ring sleep. I recommend asking him about this symptoms in his follow up visits, and having his dentist evaluate the condition of his teeth. This problem may improve with treatment of obstructive sleep apnea. Data The data obtained during this sleep study is adequate for interpretation. Certification This sleep study has been reviewed by a board certified sleep medicine physician.
[2024-08-04 07:22] VITALS: BMI 31.5
== END 2024-07-21 07:30 | disposition home or self-care (01) ==
PROVIDERS: PCP Family Medicine; Visit Provider Nurse Practitioner Family
DX: G47.33 Obstructive sleep apnea (adult) (pediatric) (principal)
CPT/HCPCS: 95811

== ENCOUNTER 2024-07-22 15:10 | Outpatient (CLI) | payer MEDICARE, SELFPAY ==
--- OUTSIDE RECORDS SUMMARY | 2024-07-22 15:14 | XMS_ITS | Clinical Summary ---
Author Organization 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 - [facility] [address] [facility], [address] [place] [address] Ruby Miles APRN [address] [facility] [facility] [address] [place] [address] Health Maintenance Due Date Last Done Comments [...] patient's age to complete this topic Insurance [facility]
--- OUTSIDE RECORDS SUMMARY | 2024-07-22 15:14 | XMS_ITS | Data Portability ---
Author Organization [place] [facility] Main Office Address [address] [place] [address] Care Team Providers Care Fine Arts Teacher Name Role Phone CARMENCITA SALGADO Primary Care Provider [phone] CARMENCITA SALGADO Referring Provider [phone] Assessment Encounter Date Assessment Date Assessment LastModified [...] for R shoulder. Thanks 2023 024 ATHENAFAX [facility], [address] [place], [address], 08:28:29 Procedures injection/ aspiration joint/burs a (PROC) 2023 [email or web address] 1 In-Office Order, Internal Use Only DO Not Attach Compendium DO Not Attach Compendium, Do Not Delete/merge, [address] 11:41:03 Surgeries None recorded. Imaging None recorded. Medication Orders Mobic 15 mg tablet [address] [facility] [address] [place], [address], 15:24:53 bupivacain e HCl 0.5 % (5 mg/mL) injection solution [address] [facility] [address] [place], [address], 4 15:24:53 Kenalog 10 mg/mL suspension for injection [address] [facility] [address] [place], [address], 15:24:53 Patient TargetsNo targets recorded. Patient InstructionsNo [...] Recorded Time Pain of right shoulder joint [id number] 00 Active 2023 Lynn Kristen, BRENT null, [place] [facility] 4 11:18:09 Problem Notes None recorded. Procedures Surgical History Date Name Laterality Status Provider Name and Address Organization Details Recorded Time 4 Ortho - Cortisone Injection completed Sherley Hernandez, ABRASIVE MIXER [address] [facility], [facility] [address], [place], [address], [facility] 04/20/2024 14:36:13 Imaging Results Imaging Date Name [...] 1 mL by injection route. 2023 active [facility]: 0003- [id number]- 20 Not Available Not Available [...] Updated DateTime 04/20/2024 175.26 cm 31.3 kg/m2 60385.58 g Lynn Peterson CNA [facility] 04/20/2024 11:13:43 Social History Question Answer Notes LastModified by Organizat ion Details LastModified Time Tobacco Smoking Status Never Smoker Lynn Peterson CNA null [facility] 04/20/2024 11:16:56 What Is Your Level Of [...] SNOMED-CT Code Diagnosis ICD10 Code Diagnosis Note [id number] Sherley Hernandez NP [facility] [address] [place] [address] 04/20/2024 10:54:07 04/20/2024 11:41:28 Pain of right shoulder joint [id number] M25.511 Health Concerns Section Related Observation LastModified by Organization Detai ls LastModified Time None Recorded Concern Status LastModified by Organization Details LastModified Time None Recorded Advance Directives Directive None Recorded Payers Encounter Date Sequence Insurance Name Policy Number Policy Weiner Covered Member ID Weiner Member ID Guarantor Name 04/20/2024 1 [facility] (MEDICARE REPLACEMENT/A DVANTAGE - HMO) [id number] Maverick Squires [id number] Maverick Squires
--- OUTSIDE RECORDS SUMMARY | 2024-07-22 15:14 | XMS_ITS | Clinical Summary ---
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 Gender Identity Not on file Sexual Orientation Not on file Last Filed Vital Signs Vital Sign Reading Time Taken Comments Blood Pressure 136/79 01/11/2024 8:32 AM CDT Pulse 74 01/11/2024 8:32 AM CDT Temperature 36.6 C (97.9 F) 07/25/2011 1:51 PM POWER SYSTEM DISPATCHER Respiratory Rate 16 01/11/2024 8:32 AM CDT [...] to complete this topic Insurance MEDICARE C [facility] [place] [id number] Care Teams Intelligence Support Officer Relationship Specialty Start Date End Date Provider, None [place] PCP - General 07/25/11 Andrés Huffman MD #[address] [address] Consulting Physician Urology 01/11/24
[2024-07-22 15:30] LABS: Basophils Percent Auto 0.6 % (0.2-1.2); Eosinophils Absolute Auto 0.3 K/mm3 (0-0.3); Eosinophils Percent Auto 3.8 % (0-4.4); Hematocrit 46.1 % (42.0-52.0); Hemoglobin 16.1 g/dL (14.0-18.0); Immature Granulocyte Absolute 0.03 K/mm3 (0.00-0.031); Immature Granulocyte Percent A 0.4 % (0-0.5); Lymphocytes Absolute Auto 2.09 K/mm3 (0.9-3.2); Lymphocytes Percent Auto 29.5 % (18.3-44.2); Mean Corpuscular HGB Conc 34.9 g/dl (32-36); Mean Corpuscular Volume 94.5 fl (80-100); Monocytes Absolute Auto 0.7 K/mm3 (0.1-0.6); Monocytes Percent Auto 10.2 % (2.6-8.5); Neutrophils Absolute Auto 3.9 K/mm3 (1.3-6.7); Neutrophils Percent Auto 55.5 % (45.5-73.1); Platelet Count Result 177 k/mm3 (150-375); Red Blood Count 4.88 M/mm3 (4.6-6.20); Red Cell Distribution Width 13.4 % (11.5-14.5); White Blood Count 7.1 K/mm3 (4.5-10.0)
[2024-07-22 15:44] LABS: Alanine Aminotransferase 49 U/L (6-50); Albumin Level 4.4 g/dL (3.5-5.1); Alkaline Phosphatase 80 U/L (38-126); Anion Gap 10 mmol/L (4-12); Aspartate Amino Transferase 44 U/L (17-59); Bilirubin,Total 0.7 mg/dL (0.2-1.3); Blood Urea Nitrogen 14 mg/dL (9-20); Calcium 9.5 mg/dL (8.4-10.2); Carbon Dioxide 29 mmol/L (22-30); Chloride 102 mmol/L (98-107); Cholesterol 158 mg/dL (0-200); Estimated Glomerular Filt Rate > 60; Glucose 84 mg/dL (65-110); HDL Direct 29 mg/dL; Potassium 4.1 mmol/L (3.4-5.0); Sodium 141 mmol/L (137-145); Triglycerides 79 mg/dL (<150)
[2024-07-22 15:44] LABS: Hemoglobin A1C 5.7 % (<5.7)
[2024-07-22 15:51] LABS: MALB Creatinine Ratio 8.4 mg/g (0-30); Microalbumin Urine Random 6.9 mg/L (0-16.7)
[2024-07-22 15:55] LABS: LDL Cholesterol Direct 117 mg/dL
[2024-07-22 16:12] LABS: Prostate Specific Antigen 1.1 ng/mL (< OR = 4.0)
[2024-07-22 16:34] LABS: Hepatitis C Virus Antibody Negative (Negative)
== END 2024-07-22 15:11 | disposition home or self-care (01) ==
LOC: ANHLAB 15:12
PROVIDERS: PCP Family Medicine; Visit Provider Family Medicine
DX: Z12.5 Encounter for screening for malignant neoplasm of prostate (principal); E78.5 Hyperlipidemia, unspecified; I12.9 Hypertensive chronic kidney disease with stage 1 through stage 4 chronic kidney disease, or unspecified chronic kidney disease; N18.9 Chronic kidney disease, unspecified; N52.9 Male erectile dysfunction, unspecified; R73.01 Impaired fasting glucose; Z11.59 Encounter for screening for other viral diseases
CPT/HCPCS: 36415; 80053; 80061; 82043; 83036; 84153; 84402; 84403; 85025; 86803; G0103

== ENCOUNTER 2024-08-15 18:54 | Emergency (ER) | payer MEDICARE, SELFPAY ==
--- NOTE | 2024-08-15 18:57 | ED.ARRPALP ---
HPI - Arrhythmia/Palpitations General Stated Complaint: Rapid Heart Beat/High Blood Pressure Time Seen by Provider: 08/15/24 18:57 Source: patient Mode of arrival: ambulatory Limitations: no limitations History of Present Illness HPI narrative: Maverick is a 69-year-old male patient presenting to the clinic today with complaints it elevated heart rate and high blood pressure. Feels as though his heart rate is racing. He reports he took a dose of phentermine today. States he has not taken phentermine for several weeks. Denies any associated chest pain, shortness of breath, dizziness, visual changes, or headache. Reports his blood pressure was 200 systolic at home. No history of hypertension. States he has taken two 0.25mg Xanax prior to coming in today. Related Data Home Medications ?Medication ?Instructions ?Recorded ?Confirmed ?Last Taken ?Type alprazolam 0.25 mg tablet 0.25 mg PO DAILY 08/18/22 07/11/24 12/24/23 10:00 History tadalafil 5 mg tablet 5 mg PO DAILY 08/18/22 07/11/24 Unknown History zolpidem 10 mg tablet 10 mg PO HS 08/18/22 07/11/24 Unknown History alfuzosin 10 mg tablet,extended 10 mg PO DAILY 07/11/24 07/11/24 Unknown History release 24 hr meloxicam 7.5 mg tablet 7.5 mg PO DAILY 07/11/24 07/11/24 Unknown History bupropion HCl 150 mg 24 hr tablet, mg PO 08/15/24 Unknown History extended release phentermine 37.5 mg tablet mg 08/15/24 Unknown History tadalafil 20 mg tablet mg 08/15/24 Unknown History Allergies Allergy/AdvReac Type Severity Reaction Status Date / Time No Known Allergies Allergy Verified 08/15/24 18:57 Review of Systems Review of Systems: Pertinent positives per HPI. Patient denies any fever, chills, rash, headache, visual changes, dizziness, cough, shortness of breath, chest pain, palpitations, nausea, vomiting, diarrhea, constipation, abdominal pain, or any urinary issues. [facility] Past Medical History Medical History Esophageal web determined by endoscopy NAILA (obstructive sleep apnea) GERD (gastroesophageal reflux disease) Anxiety Family History Family History Father Alcoholism Hypertension Heart disease Cerebrovascular accident Mother Hypertension Heart disease Grandparent Diabetes mellitus Hypertension Cerebrovascular accident Other Thyroid disorder Depression Social History Social History Smoking status: Never smoker Alcohol intake: current Drinks per week: 1 Alcohol use details: beer Substance use: never Substance use type: does not use Lack of Transportation: No Lack of Food: Never True Current Housing: I Have Housing Concerned About Future Housing: No Difficulty Paying Gas/Electric Bills: No Difficulty Paying for Meds: No Currently Unemployed: No Education: Bachelor's Degree Difficulty w/ Childcare or Family Care: No Living arrangements: with family Spiritual care concerns: No Comments At the time of my signature, I reviewed and agree with the nursing past medical, surgical, social, and family history. There is no relevant family history pertinent to the patient complaint. Exam Narrative: General: Well-developed, obese, in no apparent distress Head: Normocephalic, atraumatic. Cardio: Elevated rate and rhythm, s1 and s2 normal, no murmur appreciated. Resp: Clear to auscultation bilaterally, no rhonchi, rales, wheezing or rubs. Extremities: No deformity, no edema, no cyanosis, capillary refill less than 2 seconds, peripheral pulses palpable and strong. Integumentary: [place], warm, and dry, intact without lesion, no rashes. Course Course Emergency Course: Portions of this record may have been created with voice recognition software. Level of Care: Express Care Visit Vital Signs Vital signs: Vital signs reviewed MDM - Arrhythmia/Palpitations MDM Narrative Medical decision making narrative: At the time of visit patient is resting comfortably on the exam table. Patient appears to be nontoxic. EKG: EKG shows sinus rhythm with frequent PVCs with an incomplete right bundle-branch block. No ST elevation, depression, or T-wave inversion noted. Incomplete right bundle-branch block is shown on previous EKGs. New frequent PVCs Plan: Patient has frequent PVCs and elevated blood pressure. He has taken phentermine today and he has not taken this for a while. Recommend holding taking the phentermine and following up with his primary care provider. He denies any chest pain, shortness of breath, headache, visual changes, or dizziness in the clinic today. Supportive measures were discussed with the patient and they voiced understanding discharge instructions and agrees to treatment plan. Return precautions reviewed Differential Diagnosis Differential diagnosis: Likely palpitations, anxiety, sinus tachycardia, artial fibrillation, artial flutter, ventricular premature beats, supraventricular tachycardia, ventricular tachycardia and WPW ECG Data EKG #1: Attestation: I personally reviewed and interpreted this ECG as follows: ECG completion date: 08/15/24 ECG completion time: 19:13 Prior ECG tracings: available for review Interpretation: EKG shows sinus rhythm with frequent PVCs and incomplete RBBB. When compared to old EKGs right incomplete bundle nakul block is present. PVCs are new. Heart rates 97 beats per minute. NE interval is 195 milliseconds, QRS durations 95 milliseconds, QT-QTC is 325-380 milliseconds, P-R-T axis 61 -8 21 Discharge Plan Discharge Clinical Impression: Frequent PVCs, Elevated blood pressure reading in office without diagnosis of hypertension Patient Disposition: Home, Self-Care Condition: Stable Instructions: Antibiotic Form, Hypertension (ED), Premature Ventricular Contractions (ED) Additional Instructions: EKG shows sinus rhythm with a heart rate of 97 beats per minute with frequent PVCs. I suspect your symptoms are due to taking the phentermine today. Recommend holding the phentermine until re-evaluated by your PCP Manual blood pressure in the clinic was 156/92 Go home and rest Drink plenty of fluids and stay well hydrated Follow-up with your doctor this week if symptoms persist or go to the emergency room if symptoms worsen Go to the emergency room if you develop chest pain, shortness of breath, increased palpitations, weakness, lethargy, confusion, headache, visual changes, or any other concerning symptoms You have an elevated blood pressure in the clinic today and I recommend follow-up with primary care physician to have this reevaluated within the next week if symptoms persist. [place] Heart guidelines state that normal blood pressure is 120/80 or less. Anything over 120/80 is considered elevated and should be monitored. You may need to decrease you salt intake and eat a heart healthy diet to help lower you blood pressure, other treatments would include decreasing stress, weight loss, stop caffeine, and quit smoking. Your primary care provider can determine whether you need to start antihypertensive medications. Untreated high blood pressure can cause dizziness, headaches, visual changes, blindness, kidney failure, stroke, heart attack, and male impotence. Patient Language: [place] Prescriptions: No Action zolpidem 10 mg tablet 10 mg PO HS alprazolam 0.25 mg tablet 0.25 mg PO DAILY tadalafil 5 mg tablet 5 mg PO DAILY alfuzosin 10 mg tablet extended release 24 hr 10 mg PO DAILY Rx Instructions: administer after the same meal each day meloxicam 7.5 mg tablet 7.5 mg PO DAILY Zepbound 2.5 mg/0.5 mL pen injector 2.5 mg subcut WEEKLY Qty: 2 0RF Rx Instructions: for 4 weeks esomeprazole magnesium [Nexium] 40 mg capsule,delayed release(DR/EC) 40 mg PO BID Qty: 60 12RF Follow-up/Referrals: PHYSICIAN,GROCERY SHOPPER [Primary Care Provider] - Time of Disposition: 19:26 Quality NIHSS Nursing Documentation ED NIHSS nursing documentation: reviewed/agree
[2024-08-15 18:59] VITALS: BP 146/107; PULSE 147; RESP 20; TEMP 36.6; O2SAT 98
[2024-08-15 19:33] VITALS: BP 156/92
== END 2024-08-15 19:33 | disposition home or self-care (01) ==
PROVIDERS: Emergency Provider Nurse Practitioner Family
DX: I49.3 Ventricular premature depolarization (principal); R03.0 Elevated blood-pressure reading, without diagnosis of hypertension; K21.9 Gastro-esophageal reflux disease without esophagitis; F41.9 Anxiety disorder, unspecified
CPT/HCPCS: 93005; 99213; G0463

== ENCOUNTER 2024-10-18 07:39 | Outpatient (CLI) | payer MEDICARE, SELFPAY ==
--- OUTSIDE RECORDS SUMMARY | 2024-10-18 07:44 | XMS_ITS | Clinical Summary ---
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
--- OUTSIDE RECORDS SUMMARY | 2024-10-18 07:44 | XMS_ITS | Encounter Summary ---
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 Name Role Phone Unavailable Primary Care Provider Unavailabl e Encounter Details Date Type Department Care Team (Late Contact Info) Description 10/14/2024 Orders Only [facility] - [address], [address] [place] [phone] Rdaha Gambino MA Social History Tobacco Use Types Packs/Day Years Used Date Smoking Tobacco: Never Passive Smoke Exposure: Never Smokeless Tobacco: Never Tobacco Cessation:Counseling Given: Not Answered Alcohol Use Standard Drinks/Week Comments Not Currently 4 (1 standard drink = 0.6 oz pur e alcohol) Sex and Gender Information Value Date Recorded Sex Assigned at Male 10/14/2024 10:24 AM CDT 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
--- OUTSIDE RECORDS SUMMARY | 2024-10-18 07:44 | XMS_ITS | Data Portability ---
Author Organization [place] [facility], Main Office Address [address] [place] [address] Care Team Providers Care Ob/Gyn Name Role Phone CARMENCITA SALGADO Primary Care Provider [phone] CARMENCITA SALGADO Referring Provider [phone] Assessment Encounter Date Assessment Date Assessment LastModified [...] for R shoulder. Thanks 2023 024 ATHE[facility], [address] [place], [address], 08:28:29 Procedures injection/ aspiration joint/burs a (PROC) 2023 [email or web address] 1 In-Office Order, Internal Use Only DO Not Attach Compendium DO Not Attach Compendium, Do Not Delete/merge, [id number] 11:41:03 Surgeries None recorded. Imaging None recorded. Medication Orders Mobic 15 mg tablet [address] [facility], [address] [place], [address], 15:24:53 bupivacain e HCl 0.5 % (5 mg/mL) injection solution [address] [facility], [address] [place], [address], 4 15:24:53 Kenalog 10 mg/mL suspension for injection [address] [facility], [address] [place], [address], 15:24:53 Patient TargetsNo targets recorded. Patient InstructionsNo [...] Recorded Time Pain of right shoulder joint [id number] 00 Active 2023 Lynn Peterson, BRENT null, [facility] 4 11:18:09 Problem Notes None recorded. Procedures Surgical History Date Name Laterality Status Provider Name and Address Organization Details Recorded Time 4 Ortho - Cortisone Injection completed Sherley Hernandez, MATERIAL COMBINER [address] [facility], [facility] [address], [place], [address], [facility] 04/20/2024 14:36:13 Imaging Results Imaging Date Name Status LastModified by Organiz ation Details LastModified Time 04/12/2024 XR, shoulder, 2 or more view completed [email or web address] Information not available 04/18/2024 11:31:25 Procedure Notes None recorded. Medical Equipment None Reported. Allergies No known drug allergies Medications Name Sig Start Date Stop Date Status Note LastModified by Organization Details LastModified Time meloxicam 15 mg tablet Take 1 tablet by mouth once daily 2024 active Not Available Not Available Not Avai lable bupivacaine HCl 0.5 % (5 mg/mL) injection [...] 1 mL by injection route. 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 [place] [address] 04/20/2024 10:54:07 04/20/2024 11:41:28 Pain of right shoulder joint [id number] M25.511 Health Concerns Section Related Observation LastModified by Organization Detai ls LastModified Time None Recorded Concern Status LastModified by Organization Details LastModified Time None Recorded Advance Directives Directive None Recorded Payers Encounter Date Sequence Insurance Name Policy Number Policy Weiner Covered Member ID Weiner Member ID Guarantor Name 04/20/2024 1 [facility] (MEDICARE REPLACEMENT/A DVANTAGE - HMO) [id number] Maverick Squires [id number] Maverick Squires
--- OUTSIDE RECORDS SUMMARY | 2024-10-18 07:44 | XMS_ITS | Clinical Summary ---
Author Organization [facility] Address [facility] [place] [address] Care Team Providers Care Booster Pump Operator Name Role Phone Unavailable Primary Care Provider Unavailabl e Allergies No known active allergies Medications tadalafil (CIALIS) 20 MG tablet Take 1 tablet (20 mg total) by mouth daily as needed for Erectile Dysfunction. Active phentermine (ADIPEX-P) 37.5 MG tablet Take 1 tablet (37.5 mg total) by mouth every morning before breakfast. Active zolpidem (AMBIEN) 10 MG tablet Take 1 tablet (10 mg total) by mouth nightly as needed for Sleep. Active alfuzosin ER (UROXATRAL) 10 MG 24 hr tablet Take 1 tablet (10 mg total) by mouth daily. Active ALPRAZolam (XANAX) 0.25 MG tablet Take 1 tablet (0.25 mg total) by mouth nightly as needed for Sleep. Active Encounters Date Type Department Care Team Description 10/14/2024 Orders Only [facility] [address], [address] [place] [address] Radha Gambino MA 10/14/2024 [facility] - [address], [address] [place] [address] Radha Gambino MA from Last 3 Months Family History Medical History Relation Comments Heart Disease Father Heart Disease Mother Relation Status Comments Father Mother Social History Tobacco Use Types Packs/Day Years Used Date Smoking Tobacco: Never Passive Smoke Exposure: Never Smokeless Tobacco: Never Tobacco Cessation:Counseling Given: Not Answered Alcohol Use Standard Drinks/Week Comments Not Currently 4 (1 standard drink = 0.6 oz pur e alcohol) Sex and Gender Information Value Date Recorded Sex Assigned at Male 10/14/2024 10:24 AM CDT 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 Gender Identity Male 10/14/2024 10:24 AM CDT Sexual Orientation Not on file Plan of Treatment Upcoming Encounters Date Type Department Care Team (Late st Contact Info) Description 10/20/2024 11:00 AM CDT Office Visit [facility] - [facility] [address], [address] [place] [address] Ruby Miles, SAEED [address] [facility] [address] [place] [address] Health Maintenance Due Date Last Done Comments Colorectal Cancer Screening Colonoscopy (10 Years) 1957 Hepatitis C 1975 DTaP, Tdap and Td Vaccines ( 1 - Tdap) 1976 Pneumococcal Vaccine: 50+ Ye ars (1 of 1 - PCV) 2007 Zoster Vaccines (1 of 2) 2007 Annual Medicare Wellness Visit 2022 COVID-19 Vaccine ( - 2023-2 5 season) 2024 PHQ-2 (Physician [place]) 06/15/2024 RSV Immunization or 60+ Years (1 - 1-dose 75+ series) 2032 Meningococcal B Vaccine Aged Out No l onger eligible based on patient's age to complete this topic Meningococcal Vaccine Aged Out No david sarah eligible based on patient's age to complete this topic RSV Immunizations Under 20 Months Aged Out No longer eligible based on patient's age to complete this topic Insurance [facility]
[2024-10-18 07:58] LABS: Basophils Percent Auto 0.7 % (0.2-1.2); Eosinophils Absolute Auto 0.3 K/mm3 (0-0.3); Eosinophils Percent Auto 6.2 % (0-4.4); Hematocrit 39.1 % (42.0-52.0); Hemoglobin 13.8 g/dL (14.0-18.0); Immature Granulocyte Absolute 0.01 K/mm3 (0.00-0.031); Immature Granulocyte Percent A 0.2 % (0-0.5); Lymphocytes Absolute Auto 1.88 K/mm3 (0.9-3.2); Lymphocytes Percent Auto 35.1 % (18.3-44.2); Mean Corpuscular HGB Conc 35.3 g/dl (32-36); Mean Corpuscular Hemoglobin 32.9 pg (26-34); Mean Corpuscular Volume 93.1 fl (80-100); Mean Platelet Volume 8.8 fl (7.4-10.4); Monocytes Absolute Auto 0.5 K/mm3 (0.1-0.6); Monocytes Percent Auto 8.4 % (2.6-8.5); Neutrophils Absolute Auto 2.6 K/mm3 (1.3-6.7); Neutrophils Percent Auto 49.4 % (45.5-73.1); Platelet Count Result 156 k/mm3 (150-375); Red Cell Distribution Width 12.4 % (11.5-14.5); White Blood Count 5.4 K/mm3 (4.5-10.0)
[2024-10-18 10:35] LABS: Free T4 Free Thyroxine 1.46 ng/dL (0.78-2.19)
== END 2024-10-18 07:40 | disposition home or self-care (01) ==
LOC: ANHLAB 07:42
PROVIDERS: PCP Family Medicine; Visit Provider Registered Nurse
DX: R53.1 Weakness (principal); E03.9 Hypothyroidism, unspecified
CPT/HCPCS: 36415; 84439; 84443; 84480; 85025

== ENCOUNTER 2024-12-27 00:38 | Day surgery (SDC) | payer MEDICARE, SELFPAY ==
[2024-12-07 11:46] VITALS: BMI 28.6
--- OUTSIDE RECORDS SUMMARY | 2024-12-27 00:41 | XMS_ITS | Data Portability ---
Author Organization [place] [facility] [place] [facility], Main Office Address [address] [place] [address] Care Team Providers Care Metrologist Name Role Phone CARMENCITA SALGADO Primary Care Provider CARMENCITA SALGADO Referring Provider [phone] Assessment Encounter Date Assessment Date Assessment LastModified [...] schedule apt for R shoulder. Thanks 2023 BECKY [facility], [address] , [place], [address], 08:28:29 Procedures injection/ aspiration joint/burs a (PROC) 2023 [email or web address] 1 In-Office Order, Internal Use Only DO Not Attach Compendium DO Not Attach Compendium, Do Not Delete/merge, [id number] 11:41:03 Surgeries None recorded. Imaging None recorded. Medication Orders Mobic 15 mg tablet [address] [facility], [address] [place], [address], 4 15:24:53 bupivacain e HCl 0.5 % (5 mg/mL) injection solution [address] [facility], [address] [place], [address], 4 15:24:53 Kenalog 10 mg/mL suspension for injection [address] [facility], [address] [place], [address], 15:24:53 Patient TargetsNo targets recorded. Patient InstructionsNo instructions recorded. Reason for Referral Physical Therapist Referral for Pain of right shoulder joint R shoulder Please contact pt to schedule apt for R shoulder. Thanks Referring Physician: Sherley Hernandez, Orthopedic Surgery, Encounter Date: 04/20/2024 Results Created Date Observation Date Name Description Value Unit Range Abnormal Flag Note LastModifiedBy Organization Detail LastModifiedTime 04/18/20 24 04/12/2024 XR, shoul rocco, 2 or more view No observ ation record ed. [email or web address] Not Available 09/2023 11:31:25 Result Notes None recorded. Problems Name Problem SNOMED Code Status Onset Date Resolution Date Notes Provider Name and Address Organization Details Recorded Time Pain of right shoulder joint [id number] 00 Active 2023 Lynn Peterson CNA null, [facility] 4 11:18:09 Problem Notes None recorded. Procedures Surgical History Date Name Laterality Status Provider Name and Address Organization Details Recorded Time 4 Ortho - Cortisone Injection completed Sherley Hernandez, COMMUNICATION EQUIPMENT REPAIRER [address] [facility], [facility] [address], [place], [address], [facility] 04/20/2024 14:36:13 Imaging Results None recorded. Procedure Notes None recorded. Medical Equipment None [...] 1 mL by injection route. 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 Functional Status Question Answer Note LastModified by Organizat ion Details LastModified Time What is your level of alcohol consumption? Occasional [email or web address] Information not available 04/20/2024 Mental Status None recorded. Family History Relationship [...] SNOMED-CT Code Diagnosis ICD10 Code Diagnosis Note [id number] Chava Monsalve MD [facility] [place] [address] [place] [address] 04/20/2024 10:54:07 04/20/2024 11:41:28 Pain of right shoulder joint [id number] M25.511 Health Concerns Section Related Observation LastModified by Organization Detai ls LastModified Time None Recorded Concern Status LastModified by Organization Details LastModified Time None Recorded Advance Directives Directive None Recorded Payers Insurance Date Sequence Insurance Name Policy Number Policy Weiner Covered Member ID Weiner Member ID Guarantor Name 04/20/2024 1 [facility] (MEDICARE REPLACEMENT/A DVANTAGE - HMO) [id number] Maverick Squires [id number] Maverick Squires
--- OUTSIDE RECORDS SUMMARY | 2024-12-27 00:41 | XMS_ITS | Patient Health Record ---
Author Organization [facility] Address [address] [place] [address] Support Name Relationship Address Phone ALEXANDRUALIE Emergency Contact Unknown Unavai dawnBENI Mathews Guarantor Unknown [phone] Reason For Referral No Information Medications Medication SIG (Take, Route, Frequency, Duration) Notes Start Date End Date Status Propranolol HCl 10 MG Oral 07/17/2022 Active TADALAFIL 5 MG TABLET *Reorder from [email or web address] for eRx and Interaction Alerts* 07/17/2022 Active Doxazosin Mesylate 4 MG Oral 07/17/2022 Active Meclizine HCl 25 MG Oral 07/17/2022 Active Zolpidem Tartrate 10 MG Oral 07/17/2022 Active buPROPion HCl ER (XL) 150 MG Oral 07/17/2022 Active Esomeprazole Magnesium 20 mg Oral 07/17/2022 Active Depo-Testosterone 200 MG/ML Intramuscular 07/17/2022 Active ALPRAZolam 0.25 MG Oral 07/17/2022 Active Vilazodone HCl 40 MG Oral 07/17/2022 Active Plan Of Treatment No Information Insurance Providers Payer Name Payer Address Payer Phone Subscriber Number Group Number Insured Name Patient Relationship to Insured Coverage Start Date Coverage End Date [employer] Medicare Replacement/ Advantage - Hmo [address] [address] [place] [address] [id number] BENI HORVATH Self - patient is the insured
--- OUTSIDE RECORDS SUMMARY | 2024-12-27 00:41 | XMS_ITS | Clinical Summary ---
Author Organization [facility] Address [address] [place] [address] Care Team Providers Care Leather Production Machine Operator Name Role Phone Unavailable Primary Care [...] Encounters Date Type Department Care Team Description 10/18/2024 Telephone [facility] - [address], [address] [place] [address] Ruby Miles APRN Other; Appointment Reminder 10/14/2024 [facility] Only [facility] - [address], [address] [place] [address] Radha Gambino MA 10/14/2024 Orders Only [address], [address] [place] [address] Radha Gambino MA from Last 3 Months [...] AM CDT 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
--- OUTSIDE RECORDS SUMMARY | 2024-12-27 00:41 | XMS_ITS | Patient Health Record ---
Author Organization Osiel Alexandra DO/ [facility] Address [address] [place] [address] Support Name Relationship Address Phone Maverick Squires Guarantor Unknown [phone] Reason For Referral No Information Medications Medication SIG (Take, Route, Frequency, Duration) Notes Start Date End Date Status Veramyst 27.5 MCG/SPRAY 2 puffs in each nostril Nasally Once a day; Duration: 30 day(s) 11/29/2009 Active Plan Of Treatment No Information
--- OUTSIDE RECORDS SUMMARY | 2024-12-27 00:41 | XMS_ITS | Clinical Summary ---
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 Gender Identity Not on file Sexual Orientation Not on file Last Filed Vital Signs Vital Sign Reading Time Taken Comments Blood Pressure 136/79 01/11/2024 8:32 AM CDT Pulse 74 01/11/2024 8:32 AM CDT Temperature 36.6 C (97.9 F) 07/25/2011 1:51 PM HAND SHOES SEWER Respiratory Rate 16 01/11/2024 8:32 AM CDT Oxygen Saturation 95% 01/11/2024 8:32 AM CDT Inhaled Oxygen Concentration - - Weight 98.9 kg (218 lb) 01/11/2024 8:32 AM CDT Height 175.3 cm (5' 9) 01/11/2024 8:32 AM CDT Body Mass Index 32.19 01/11/2024 8:32 AM CDT Plan of Treatment Health Maintenance Due Date Last Done Comments Hepatitis C Virus (HCV) Screening 1955 TdaP Immunization 1957 Cologuard 2002 Colonoscopy 2002 Colorectal Cancer Screening 2002 Immunochemical Fecal Occult Blood 2002 Pneumococcal Immunization (5 0+ years) (1 of 1 - PCV) 2007 Zoster Immunization (1 of 2) 2007 PSA Discussion 2012 SARS-COV-2 Immunization ( - season) 2024 Influenza Immunization (#1) 2025 Respiratory Syncytial Virus (RSV) Immunization (Adult) (1 - 1-dose 75+ series) 2032 Hepatitis B Immunization Aged Out No longer eligible based on patient's age to complete this topic Human Papillomavirus (HPV) Immunization Aged Out No longer eligible b ased on patient's age to complete this topic Meningococcal Immunization (ACWY) Aged Out No longer eligible based on patient's age to complete this topic Rotavirus Immunization Aged Out No lo nger eligible based on patient's age to complete this topic Insurance [facility]IC[facility] Care Teams Puddler Helper Relationship Specialty Start Date End Date Provider, None [place] PCP - General 07/25/11 Andrés Huffman MD #[address] [address] Consulting Physician Urology 01/11/24
[2024-12-27 08:45] VITALS: BP 128/78; PULSE 68; RESP 18; TEMP 36.6; O2SAT 98; BMI 28.3
[2024-12-27] MEDS: LACTATED RINGERS 1,000 ML 150 ML IV CONT (09:04)
--- NOTE | 2024-12-27 09:33 | WPDANESEPPF ---
Anes - Initial Pre Proc Eval Procedure: Operation Date: 12/27/24 10:00 Proposed Procedures p Colonoscopy - Simon Dickens MD Date/Time: 12/27/24 09:33 Surgeon: Simon Dickens MD Pre Op Diagnosis: Anemia, unspecified Patient Data Age: 69 Gender: M Height: 1.75 m Weight: 87.2 kg Last Vital Signs Temp 97.9 F 12/27/24 08:45 Pulse 68 12/27/24 08:45 Resp 18 12/27/24 08:45 BP 128/78 12/27/24 08:45 Pulse Ox 98 12/27/24 08:45 O2 Del Method Room Air 12/27/24 08:45 Allergies Allergy/AdvReac Type Severity Reaction Status Date / Time No Known Allergies Allergy Verified 12/27/24 08:54 Home Medications ?Medication ?Instructions ?Recorded ?Confirmed ?Type alprazolam 0.25 mg tablet 0.25 mg PO DAILY 08/18/22 12/27/24 History zolpidem 10 mg tablet 10 mg PO HS 08/18/22 12/27/24 History esomeprazole magnesium 40 mg 40 mg PO BID #60 caps 12/24/23 12/27/24 Rx capsule,delayed release (Nexium) alfuzosin 10 mg tablet,extended 10 mg PO DAILY 07/11/24 12/27/24 History release 24 hr meloxicam 7.5 mg tablet 7.5 mg PO DAILY 07/11/24 12/27/24 History tirzepatide (weight loss) 2.5 2.5 mg (0.5 mL) subcut WEEKLY #2 mL 08/04/24 12/27/24 Rx mg/0.5 mL subcutaneous pen injector (Zepbound) phentermine 37.5 mg tablet 37.5 mg PO DAILY 08/15/24 12/27/24 History tadalafil 20 mg tablet 20 mg PO DAILY 08/15/24 12/07/24 History Patient hx anesthesia problems: none Family hx anesthesia problems: none Results Review: All pre-operative results and documents have been reviewed as part of the pre-operative evaluation. 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 NAILA (obstructive sleep apnea) GERD (gastroesophageal reflux disease) Anxiety Family History Family History Father Alcoholism Hypertension Heart disease Cerebrovascular accident Mother Hypertension Heart disease Grandparent Diabetes mellitus Hypertension Cerebrovascular accident Other Thyroid disorder Depression Social History Social History Smoking status: Never smoker Alcohol intake: never Drinks per week: 1 Alcohol use details: beer Substance use: never Substance use type: does not use Lack of Transportation: No Lack of Food: Never True Current Housing: I Have Housing Concerned About Future Housing: No Difficulty Paying Gas/Electric Bills: No Difficulty Paying for Meds: No Currently Unemployed: No Education: Bachelor's Degree Difficulty w/ Childcare or Family Care: No Living arrangements: with family Spiritual care concerns: No Anes - Eval Final PreProcedure Day of Procedure 12/27/24 09:33 Patient weight: overweight Lungs: normal air movement Airway: Mallampati scale class II Neurological: alert and oriented Last oral intake: >/= 8 hours ASA classification: II Emergent: no Anesthetic plan: proceed Anesthesia type and monitoring: general GIVS and standard monitoring Results Review: All pre-operative results and documents have been reviewed as part of the pre-operative evaluation. NAILA on CPAP. Informed Consent: The patient's anesthetic plan and its attendant risks and benefits were discussed with the patient/family/POA. Questions were solicited and answers provided to the satisfaction of the patient/family/POA.
--- NOTE | 2024-12-27 10:06 | PM.IMHP ---
H&P: HPI History of Present Illness Date/Time: 12/27/24 10:06 Chief Complaint: Screening colonoscopy Narrative: This is the patient's first colonoscopy. There are no GI symptoms and there is no family history of colorectal cancer. Review of Systems Review of Systems: All systems reviewed & are unremarkable except as noted in HPI and below PMFSH Past Medical History Medical History Esophageal web determined by endoscopy NAILA (obstructive sleep apnea) GERD (gastroesophageal reflux disease) Anxiety Family History Family History Father Alcoholism Hypertension Heart disease Cerebrovascular accident Mother Hypertension Heart disease Grandparent Diabetes mellitus Hypertension Cerebrovascular accident Other Thyroid disorder Depression Social History Social History Smoking status: Never smoker Alcohol intake: never Drinks per week: 1 Alcohol use details: beer Substance use: never Substance use type: does not use Lack of Transportation: No Lack of Food: Never True Current Housing: I Have Housing Concerned About Future Housing: No Difficulty Paying Gas/Electric Bills: No Difficulty Paying for Meds: No Currently Unemployed: No Education: Bachelor's Degree Difficulty w/ Childcare or Family Care: No Living arrangements: with family Spiritual care concerns: No Meds Home Medications and Allergies Home Medications ?Medication ?Instructions ?Recorded ?Confirmed ?Type alprazolam 0.25 mg tablet 0.25 mg PO DAILY 08/18/22 12/27/24 History zolpidem 10 mg tablet 10 mg PO HS 08/18/22 12/27/24 History esomeprazole magnesium 40 mg 40 mg PO BID #60 caps 12/24/23 12/27/24 Rx capsule,delayed release (Nexium) alfuzosin 10 mg tablet,extended 10 mg PO DAILY 07/11/24 12/27/24 History release 24 hr meloxicam 7.5 mg tablet 7.5 mg PO DAILY 07/11/24 12/27/24 History tirzepatide (weight loss) 2.5 2.5 mg (0.5 mL) subcut WEEKLY #2 mL 08/04/24 12/27/24 Rx mg/0.5 mL subcutaneous pen injector (Zepbound) phentermine 37.5 mg tablet 37.5 mg PO DAILY 08/15/24 12/27/24 History tadalafil 20 mg tablet 20 mg PO DAILY 08/15/24 12/07/24 History Allergies Allergy/AdvReac Type Severity Reaction Status Date / Time No Known Allergies Allergy Verified 12/27/24 08:54 Vital Signs Vital Signs - 24 hr 12/27/24 08:45 Temperature 97.9 F Pulse Rate 68 Respiratory Rate 18 Blood Pressure 128/78 Pulse Oximetry 98 Oxygen Delivery Room Air Exam Const: General: cooperative and healthy appearing Resp: Effort & Inspection: normal respiratory effort and able to speak in complete sentences Auscultation: clear to auscultation bilaterally Cardio: Rate: regular rate Rhythm: regular rhythm GI: Inspection: normal to inspection GI Palp: No No hepatosplenomegaly present Auscultation: normal bowel sounds Rectal Exam: deferred Skin: General skin exam: normal color Psych: Appearance: grossly normal Mental Status: mental status grossly normal Assessment and Plan Assessment and plan (1) Encounter for screening colonoscopy: Code(s): Z12.11 - Encounter for screening for malignant neoplasm of colon Status: Acute Assessment and Plan: The patient is deemed a good candidate for the procedure. Consent signed. Will proceed.
[2024-12-27 10:40] VITALS: BP 126/65; PULSE 55; RESP 18; O2SAT 96
[2024-12-27 10:50] VITALS: BP 132/72; PULSE 58; RESP 16; O2SAT 98
[2024-12-27 11:00] VITALS: BP 136/74; PULSE 62; RESP 16; O2SAT 98
== END 2024-12-27 11:10 | disposition home or self-care (01) ==
PROVIDERS: PCP Family Medicine; Referring Provider Registered Nurse; Visit Provider Internal Medicine Gastroenterology
PROC: 0DJD8ZZ Inspection of Lower Intestinal Tract, Via Natural or Artificial Opening Endoscopic (ICD-10-PCS; CPT 45378; principal; 2024-12-27 10:00)
DX: Z12.11 Encounter for screening for malignant neoplasm of colon (principal); K64.8 Other hemorrhoids; K57.30 Diverticulosis of large intestine without perforation or abscess without bleeding; K21.9 Gastro-esophageal reflux disease without esophagitis; G47.33 Obstructive sleep apnea (adult) (pediatric); F41.9 Anxiety disorder, unspecified; Z79.85 Long-term (current) use of injectable non-insulin antidiabetic drugs; Z99.89 Dependence on other enabling machines and devices; Z87.19 Personal history of other diseases of the digestive system; Z82.49 Family history of ischemic heart disease and other diseases of the circulatory system
CPT/HCPCS: G0121; J2003; J2704; J7120

== ENCOUNTER 2025-01-17 15:25 | Outpatient (CLI) | payer MEDICARE, SELFPAY ==
--- OUTSIDE RECORDS SUMMARY | 2025-01-17 15:30 | XMS_ITS | Patient Health Record ---
Author Organization Osiel Alexandra DO/ [facility] Address [address] [place] [address] Support Name Relationship Address Phone Maverick Squires Guarantor Unknown [phone] Reason For Referral No Information Medications Medication SIG (Take, Route, Frequency, Duration) Notes Start Date End Date Status Veramyst 27.5 MCG/SPRAY 2 puffs in each nostril Nasally Once a day; Duration: 30 day(s) 11/29/2009 Active Plan Of Treatment No Information
--- OUTSIDE RECORDS SUMMARY | 2025-01-17 15:30 | XMS_ITS | Clinical Summary ---
Author Organization [facility] Address [address] [place] [address] Phone Care Team Providers Care Senior Label Specialist Name Role Phone Provider, None Primary Care Provider Andrés Cornelius MD Unavailable [phone] Allergies No known active allergies Medications Loratadine-Pseu doephedrine (CLARITIN-D 24 HOUR PO) Take by mouth. Active ALPRAZolam (XANAX) 0.25 MG Tablet Take 0.25 mg by mouth daily. Active Phentermine HCl 37.5 MG Tablet Take 37.5 mg by mouth daily. 4 Active zolpidem (AMBIEN) 10 MG Tablet TAKE 1 TABLET BY MOUTH ONCE DAILY AT BEDTIME Active tadalafil (CIALIS) 20 MG Tablet TAKE ONE TABLET BY MOUTH 30-45 MINUTES PRIOR TO SEXUAL ACTIVITY 4 Active Multiple Vitamins-Minera ls (EYE VITAMINS PO) Take by mouth. Active psyllium (METAMUCIL) 58.6 % Pack Take 1 Packet by mouth daily. 90 Packet 3 4 Active alfuzosin (UROXATRAL) 10 MG TABLET SR 24 HR Take 1 Tablet by mouth nightly for 360 days. 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 Gender Identity Not on file Sexual Orientation Not on file Last Filed Vital Signs Vital Sign Reading Time Taken Comments Blood Pressure 136/79 01/11/2024 8:32 AM CDT Pulse 74 01/11/2024 8:32 AM CDT Temperature 36.6 C (97.9 F) 07/25/2011 1:51 PM DEVELOPMENT DISABILITY SPECIALIST Respiratory Rate 16 01/11/2024 8:32 AM CDT [...] to complete this topic Insurance [facility]IC[facility] Care Teams Senior Label Specialist Relationship Specialty Start Date End Date Provider, None MD PCP - General 07/25/11 Andrés Huffman MD #[id number] [id number] Consulting Physician Urology 01/11/24
--- OUTSIDE RECORDS SUMMARY | 2025-01-17 15:30 | XMS_ITS | Clinical Summary ---
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
--- OUTSIDE RECORDS SUMMARY | 2025-01-17 15:30 | XMS_ITS | Patient Health Record ---
Author Organization [facility] ([facility]) [facility] Address [address] [place] [address] Support Name Relationship Address Phone ALEXANDRUALIE Emergency Contact Unknown Unavai dawnBENI Mathews Guarantor Unknown [phone] Reason For Referral No Information Medications Medication SIG (Take, Route, Frequency, Duration) Notes Start Date End Date Status Propranolol HCl 10 MG Oral 07/17/2022 Active TADALAFIL 5 MG TABLET *Reorder from [employer] for eRx and Interaction Alerts* 07/17/2022 Active [...] Medicare Replacement/ Advantage - Hmo [address] [address] [place] [address] [id number] BENI HORVATH Self - patient is the insured
[2025-01-17 15:57] LABS: Hematocrit 44.1 % (42.0-52.0); Hemoglobin 14.9 g/dL (14.0-18.0); Immature Granulocyte Percent A 0.2 % (0-0.5); Lymphocytes Absolute Auto 1.69 K/mm3 (0.9-3.2); Mean Corpuscular HGB Conc 33.8 g/dl (32-36); Mean Corpuscular Hemoglobin 32.9 pg (26-34); Mean Corpuscular Volume 97.4 fl (80-100); Nucleated Red Blood Cells Absolute Auto 0.000 K/mm3 (0.0-0.012); Nucleated Red Blood Cells Perc 0.0 % (0.0-0.2); Platelet Count Result 168 k/mm3 (150-375); Red Blood Count 4.53 M/mm3 (4.6-6.20); White Blood Count 6.1 K/mm3 (4.5-10.0)
[2025-01-17 16:34] LABS: Alanine Aminotransferase 19 U/L (6-50); Albumin Level 4.4 g/dL (3.5-5.1); Alkaline Phosphatase 74 U/L (38-126); Anion Gap 8 mmol/L (4-12); Aspartate Amino Transferase 24 U/L (17-59); Bilirubin,Total 0.4 mg/dL (0.2-1.3); Blood Urea Nitrogen 10 mg/dL (9-20); Calcium 9.6 mg/dL (8.4-10.2); Carbon Dioxide 28 mmol/L (22-30); Chloride 105 mmol/L (98-107); Estimated Glomerular Filt Rate > 60; Glucose 107 mg/dL (65-110); Potassium 3.7 mmol/L (3.4-5.0); Sodium 141 mmol/L (137-145); Total Protein 7.4 g/dL (6.3-8.2)
[2025-01-17 16:40] LABS: Free T3 4.21 pg/mL (2.45-5.93); Free T4 Free Thyroxine 0.84 ng/dL (0.78-2.19)
[2025-01-17 18:07] LABS: Prostate Specific Antigen 0.8 ng/mL (< OR = 4.0); Thyroid Stimulating Hormone 2.470 uIU/mL (0.465-4.680)
[2025-01-17 18:28] LABS: Vitamin B12 > 1000.0 pg/mL (239-931)
[2025-01-22 14:07] LABS: Free Testosterone (Direct) 14.0 pg/mL (6.6-18.1)
[2025-01-22 19:37] LABS: Estradiol, Sensitive 23.0 pg/mL (8.0-35.0)
== END 2025-01-17 15:26 | disposition home or self-care (01) ==
LOC: ANHLAB 15:27
PROVIDERS: PCP Family Medicine; Visit Provider Registered Nurse
DX: E03.9 Hypothyroidism, unspecified (principal); Z00.00 Encounter for general adult medical examination without abnormal findings; E29.1 Testicular hypofunction; N40.0 Benign prostatic hyperplasia without lower urinary tract symptoms
CPT/HCPCS: 36415; 80053; 82306; 82607; 82670; 84153; 84402; 84403; 84439; 84443; 84481; 85025; 86376